=== PATIENT | male | born 1945 | race Caucasian/White ===

== ENCOUNTER 2020-10-24 11:48 | Emergency (ER) | payer MEDICARE ==
[2020-10-24 13:37] LABS: #Basophils 0.1 thou/uL (0.0-0.2); #Eosinphils 0.1 thou/uL (0.0-0.7); #Lymphocytes 2.9 thou/uL (1.20-3.40); #Monocytes 1.6 thou/uL (0.11-0.59); #Neutrophils 6.8 thou/uL (1.40-6.50); %Basophils 0.5 % (0.0-1.0); %Eosinophils 0.8 % (0.0-10.0); %Lymphocytes 25.7 % (21.0-51.0); Mean Corpuscular HGB CONC 32.2 g/dL (32.0-36.0); Mean Corpuscular Hemoglobin 30.1 pg (27.0-31.0); Mean Corpuscular Volume 93.4 fL (78.0-98.0); Mean Platelet Volume 9.8 fL (7.4-10.4); Platelet Count 303 thou/uL (130-400); RBC Distribution Width 13.6 % (11.5-14.5); Red Blood Cell (RBC) Count 4.31 mill/uL (4.70-6.10); White Blood Cell (WBC) Count 11.5 thou/uL (4.8-10.8)
[2020-10-24 13:54] LABS: ALT (SGPT) 18 U/L (8-55); AST (SGOT) 21 U/L (5-34); Alkaline Phosphatase 106 U/L (40-110); Anion Gap 15 mmol/L (10-20); BUN (Urea Nitrogen) 23 mg/dL (8.4-25.7); Bilirubin, Total 0.4 mg/dL (0.2-1.2); Calc. Creatinine Clearance 0 mL/min (70-130); Calcium 9.2 mg/dL (7.8-10.44); Carbon Dioxide 24 mmol/L (23-31); Chloride 106 mmol/L (98-107); Globulin 3.4 g/dL (2.4-3.5); Glucose 158 mg/dL (83-110); Potassium 4.4 mmol/L (3.5-5.1); Protein, Total 7.4 g/dL (5.8-8.1); Sodium 141 mmol/L (136-145)
[2020-10-24 14:23] LABS: Bilirubin Negative (Negative); Blood, Urine Negative (Negative); Clarity Clear (Clear); Glucose, Urine (Dipstick) 30 mg/dL (Negative); Ketone, Urine Negative (Negative); Leukocyte Negative Leu/uL (Negative); Nitrite Negative (Negative); Protein, Urine (Dipstick) Negative (Neg-Trace); Specific Gravity, Urine 1.017 (1.002-1.036); Urobilinogen Normal mg/dL (Less than 2)
[2020-10-24] MEDS ORDERED: Iopamidol-370 76% 500 ML 1 ML ONE (14:27)
== END 2020-10-24 20:34 | disposition home or self-care (01) ==
LOC: ERS 11:48
DX: R06.00 Dyspnea, unspecified (principal); R53.83 Other fatigue; I25.10 Atherosclerotic heart disease of native coronary artery without angina pectoris; E11.9 Type 2 diabetes mellitus without complications; E78.5 Hyperlipidemia, unspecified; E78.00 Pure hypercholesterolemia, unspecified; I10 Essential (primary) hypertension; Z79.82 Long term (current) use of aspirin; Z79.899 Other long term (current) drug therapy; Z79.84 Long term (current) use of oral hypoglycemic drugs
CPT/HCPCS: 36415; 70450; 71045; 71275; 80053; 81003; 84484; 85025; 85379; 93005; 94760; Q9967

== ENCOUNTER 2021-01-17 09:51 | Outpatient (CLI) | payer MEDICARE ==
[2021-01-17 12:02] LABS: Hemoglobin 13.2 g/dL (13.5-17.5); Mean Corpuscular HGB CONC 32.2 g/dL (32.0-36.0); Mean Corpuscular Volume 90.1 fl (81.2-95.1); Mean Platelet Volume 12.6 fl (7.4-10.4); Platelet Count 378 10x3/uL (150-450); RBC Distribution Width 15.1 % (11.5-14.5); Red Blood Cell (RBC) Count 4.55 10x6/uL (4.32-5.72); White Blood Cell (WBC) Count 13.3 10x3/uL (3.5-10.5)
[2021-01-17 12:10] LABS: PTT 26.7 sec (22.0-33.0)
[2021-01-17 12:12] LABS: Anion Gap 17 mmol/L (10-20); BUN (Urea Nitrogen) 24 mg/dL (8.4-25.7); Calc. Creatinine Clearance 0 mL/min (70-130); Calcium 9.9 mg/dL (7.8-10.44); Carbon Dioxide 24 mmol/L (23-31); Chloride 106 mmol/L (98-107); Glucose 176 mg/dL (83-110); Sodium 142 mmol/L (136-145)
[2021-01-17 12:42] LABS: Bilirubin Neg (Negative); Blood, Urine Negative (Negative); Clarity Clear (Clear); Glucose, Urine (Dipstick) Normal (Negative); Ketone, Urine Negative (Negative); Leukocyte Negative (Negative); Nitrite Negative (Negative); Protein, Urine (Dipstick) Negative (Neg-Trace); Urobilinogen Normal mg/dL (Less than 2)
[2021-01-17 13:18] LABS: Mucous/LPF 1+ LPF (<2+); RBC/HPF 0-3 HPF (0-3); Squamous Epithelial 0-3 HPF (0-3); WBC/HPF 0-3 HPF (0-3)
== END 2021-01-17 09:52 | disposition home or self-care (01) ==
LOC: LABBT 09:51
PROVIDERS: ATTEND Urology
DX: Z01.818 Encounter for other preprocedural examination (principal); Z12.5 Encounter for screening for malignant neoplasm of prostate; I11.0 Hypertensive heart disease with heart failure; N43.40 Spermatocele of epididymis, unspecified; E11.9 Type 2 diabetes mellitus without complications; I73.9 Peripheral vascular disease, unspecified; I50.9 Heart failure, unspecified; N40.1 Benign prostatic hyperplasia with lower urinary tract symptoms; N43.2 Other hydrocele; N28.9 Disorder of kidney and ureter, unspecified; J98.6 Disorders of diaphragm; R35.1 Nocturia
CPT/HCPCS: 80048; 81001; 85027; 85610; 85730; 87086; 93005; 93010

== ENCOUNTER 2021-01-22 06:21 | Day surgery (SDC) | payer MEDICARE ==
[2021-01-21 12:23] VITALS: BMI 29.7
[2021-01-22] MEDS ORDERED: Bacitracin Zinc Ointment 30 gm TUBE ONE (07:01)
[2021-01-22] MEDS ORDERED: Gentamicin 80 MG/2 ML VIAL ONE (07:01)
[2021-01-22] MEDS ORDERED: CEFAZOLIN 1 GM VIAL ONE (07:19)
[2021-01-22] MEDS ORDERED: Sodium Chloride 0.9% 100 ML ONE (07:19)
[2021-01-22] MEDS ORDERED: Levofloxacin 500 mg/D5W 100 ml Premix Bag ONE (07:19)
[2021-01-22] MEDS ORDERED: PHENYLEPHRINE-NS 100 MCG/ML 10 ML SYRINGE ONE ×2 (08:23→08:27)
[2021-01-22] MEDS ORDERED: Fentanyl 100 MCG/2 ML VIAL ONE (08:23)
[2021-01-22] MEDS ORDERED: ePHEDrine Sulfate 50 MG/10 ML VIAL ONE (08:27)
[2021-01-22] MEDS ORDERED: Glycopyrrolate 0.2 MG/ML 5 ML SYRINGE ONE (08:27)
[2021-01-22] MEDS ORDERED: Ondansetron PF 4 MG/2 ML Vial ONE (08:27)
[2021-01-22] MEDS ORDERED: PROPOFOL 200 MG/20 ML VIAL ONE (08:27)
[2021-01-22] MEDS ORDERED: EPINEPHrine 1 MG/10 ML Abboject SYRINGE ONE (08:27)
[2021-01-22] MEDS ORDERED: Neomycin-Polymyxin 1 ML AMP ONE (09:16)
[2021-01-22] MEDS ORDERED: Bupivacaine 0.25% HCL 30 ML VIAL ONE (10:17)
[2021-01-22] MEDS ORDERED: Phenazopyridine HCl 100 MG TAB ONE (10:55)
== END 2021-01-22 15:53 | disposition home or self-care (01) ==
LOC: SDC 06:21
PROVIDERS: ATTEND Urology
PROC: 0T7D8DZ Dilation of Urethra with Intraluminal Device, Via Natural or Artificial Opening Endoscopic (ICD-10-PCS; principal; 2021-01-22)
PROC: 0VB60ZZ Excision of Right Tunica Vaginalis, Open Approach (ICD-10-PCS; 2021-01-22)
PROC: 0VBJ0ZZ Excision of Right Epididymis, Open Approach (ICD-10-PCS; 2021-01-22)
DX: N40.1 Benign prostatic hyperplasia with lower urinary tract symptoms (principal); N13.8 Other obstructive and reflux uropathy; N43.3 Hydrocele, unspecified; N43.41 Spermatocele of epididymis, single; R39.11 Hesitancy of micturition; R39.12 Poor urinary stream; R35.1 Nocturia; E11.51 Type 2 diabetes mellitus with diabetic peripheral angiopathy without gangrene; I11.0 Hypertensive heart disease with heart failure; I50.9 Heart failure, unspecified; E11.43 Type 2 diabetes mellitus with diabetic autonomic (poly)neuropathy; K31.84 Gastroparesis; E78.00 Pure hypercholesterolemia, unspecified; I25.10 Atherosclerotic heart disease of native coronary artery without angina pectoris; Z79.02 Long term (current) use of antithrombotics/antiplatelets; Z79.82 Long term (current) use of aspirin; Z79.84 Long term (current) use of oral hypoglycemic drugs; Z79.899 Other long term (current) drug therapy; Z95.1 Presence of aortocoronary bypass graft
CPT/HCPCS: 88304; J0171; J0690; J1580; J1956; J2405; J2704; J3010; J3370; J3490; L8699; S0020

== ENCOUNTER 2021-07-16 09:52 | Inpatient (IN) | payer MEDICARE ==
[2021-07-16 10:53] LABS: #Eosinphils 0.3 thou/uL (0.0-0.7); #Lymphocytes 2.7 thou/uL (1.20-3.40); #Monocytes 1.6 thou/uL (0.11-0.59); #Neutrophils 7.1 thou/uL (1.40-6.50); %Basophils 0.1 % (0.0-1.0); %Eosinophils 2.9 % (0.0-10.0); %Monocytes 13.7 % (0.0-10.0); %Neutrophils 60.3 % (42.0-75.0); Hemoglobin 13.5 g/dL (14.0-18.0); Mean Corpuscular HGB CONC 32.1 g/dL (32.0-36.0); Mean Corpuscular Hemoglobin 29.3 pg (27.0-31.0); Mean Corpuscular Volume 91.2 fL (78.0-98.0); Mean Platelet Volume 8.6 fL (7.4-10.4); Platelet Count 391 thou/uL (130-400); RBC Distribution Width 12.6 % (11.5-14.5); White Blood Cell (WBC) Count 11.8 thou/uL (4.8-10.8)
[2021-07-16 11:14] LABS: ALT (SGPT) 15 U/L (8-55); AST (SGOT) 18 U/L (5-34); Albumin 3.8 g/dL (3.4-4.8); Alkaline Phosphatase 124 U/L (40-110); Anion Gap 15 mmol/L (10-20); BUN (Urea Nitrogen) 19 mg/dL (8.4-25.7); Bilirubin, Total 0.2 mg/dL (0.2-1.2); Calc. Creatinine Clearance 0 mL/min (70-130); Calcium 9.1 mg/dL (7.8-10.44); Carbon Dioxide 23 mmol/L (23-31); Chloride 107 mmol/L (98-107); Globulin 3.5 g/dL (2.4-3.5); Glucose 82 mg/dL (83-110); Potassium 3.8 mmol/L (3.5-5.1); Protein, Total 7.3 g/dL (5.8-8.1); Sodium 141 mmol/L (136-145)
[2021-07-16 11:31] LABS: CKMB 1.5 ng/mL (0-6.6)
[2021-07-16 11:52] LABS: SARS-CoV-2 NAA Rapid Test Not Detected (NotDetected)
[2021-07-16 12:00] LABS: Bilirubin Negative (Negative); Blood, Urine Negative (Negative); Clarity Clear (Clear); Glucose, Urine (Dipstick) Normal (Negative); Ketone, Urine Negative (Negative); Leukocyte Negative Leu/uL (Negative); Nitrite Negative (Negative); Protein, Urine (Dipstick) 10 mg/dL (Neg-Trace); Specific Gravity, Urine 1.021 (1.002-1.036); Urobilinogen Normal mg/dL (Less than 2); pH, Urine 5.5 (5.0-9.0)
[2021-07-16] MEDS ORDERED: Aspirin Chewable 81 MG TAB ONE (12:23)
[2021-07-16 14:57] LABS: Troponin I Less than 0.010 ng/mL (< 0.028)
[2021-07-16] MEDS ORDERED: Acetaminophen 325 MG TAB PO PRN (17:01)
[2021-07-16] MEDS ORDERED: Senokot S 8.6-50 MG TAB PO PRN (17:01)
[2021-07-16] MEDS ORDERED: Ondansetron ODT 4 MG TAB PO PRN (17:01)
[2021-07-16] MEDS ORDERED: HumaLOG 300 UNITS/3 ML VIAL SC PRN ×2 (17:19)
[2021-07-16] MEDS ORDERED: Dextrose 5% in Water 1,000 ML IV PRN (17:19)
[2021-07-16] MEDS ORDERED: Dextrose 50% Abboject 50 ML SYRINGE SLOW IVP PRN (17:19)
[2021-07-16 17:58] LABS: Troponin I 0.013 ng/mL (< 0.028)
[2021-07-16 18:15] VITALS: BMI 26.6
[2021-07-16] MEDS: Sodium Chloride 0.9% 1,000 ML IV SCH (18:30)
[2021-07-16] MEDS: guaiFENesin/DM ER PO SCH (20:23)
[2021-07-16] MEDS: Famotidine 20 MG TAB PO SCH (20:23)
[2021-07-17] MEDS: Sodium Chloride 0.9% 1,000 ML IV SCH (04:50)
[2021-07-17 05:13] LABS: #Eosinphils 0.4 thou/uL (0.0-0.7); #Lymphocytes 3.2 thou/uL (1.20-3.40); #Monocytes 1.7 thou/uL (0.11-0.59); #Neutrophils 9.4 thou/uL (1.40-6.50); %Basophils 0.3 % (0.0-1.0); %Eosinophils 2.9 % (0.0-10.0); %Lymphocytes 21.5 % (21.0-51.0); %Monocytes 11.4 % (0.0-10.0); %Neutrophils 63.9 % (42.0-75.0); Hemoglobin 12.5 g/dL (14.0-18.0); Mean Corpuscular HGB CONC 32.7 g/dL (32.0-36.0); Mean Corpuscular Hemoglobin 29.9 pg (27.0-31.0); Mean Corpuscular Volume 91.2 fL (78.0-98.0); Mean Platelet Volume 8.7 fL (7.4-10.4); Platelet Count 377 thou/uL (130-400); RBC Distribution Width 12.4 % (11.5-14.5); Red Blood Cell (RBC) Count 4.19 mill/uL (4.70-6.10); White Blood Cell (WBC) Count 14.7 thou/uL (4.8-10.8)
[2021-07-17 05:38] LABS: ALT (SGPT) 14 U/L (8-55); AST (SGOT) 16 U/L (5-34); Albumin 3.4 g/dL (3.4-4.8); Alkaline Phosphatase 119 U/L (40-110); Anion Gap 11 mmol/L (10-20); BUN (Urea Nitrogen) 14 mg/dL (8.4-25.7); Bilirubin, Total 0.2 mg/dL (0.2-1.2); Calc. Creatinine Clearance 67 mL/min (70-130); Calcium 8.6 mg/dL (7.8-10.44); Carbon Dioxide 25 mmol/L (23-31); Chloride 108 mmol/L (98-107); Globulin 3.2 g/dL (2.4-3.5); Glucose 122 mg/dL (83-110); Potassium 3.5 mmol/L (3.5-5.1); Protein, Total 6.6 g/dL (5.8-8.1); Sodium 140 mmol/L (136-145)
[2021-07-17] MEDS ORDERED: FLU VACC QS2021-22(65YR UP)/PF 240 MCG/0.7 ML SYRINGE IM ONE (09:00)
[2021-07-17] MEDS: Famotidine 20 MG TAB PO SCH ×2 (09:13→20:32)
[2021-07-17] MEDS: Aspirin 81 mg Enteric Coated Tablet PO SCH (09:13)
[2021-07-17] MEDS: guaiFENesin/DM ER PO SCH ×2 (09:13→20:32)
[2021-07-17] MEDS ORDERED: Carvedilol 25 MG TAB PO SCH (10:30)
[2021-07-17] MEDS ORDERED: Bupropion 150 MG XL TAB PO SCH (10:30)
[2021-07-17] MEDS ORDERED: Amlodipine 10 MG TAB PO SCH (10:30)
[2021-07-17] MEDS ORDERED: Tamsulosin HCl 0.4 MG CAP PO SCH (10:45)
[2021-07-17] MEDS ORDERED: Ramipril 5 MG CAP PO SCH (15:00)
[2021-07-18 04:37] LABS: #Basophils 0.1 thou/uL (0.0-0.2); #Eosinphils 0.3 thou/uL (0.0-0.7); #Lymphocytes 3.2 thou/uL (1.20-3.40); #Monocytes 1.5 thou/uL (0.11-0.59); #Neutrophils 8.1 thou/uL (1.40-6.50); %Basophils 0.4 % (0.0-1.0); %Eosinophils 2.6 % (0.0-10.0); %Lymphocytes 24.1 % (21.0-51.0); %Monocytes 11.5 % (0.0-10.0); %Neutrophils 61.4 % (42.0-75.0); Hemoglobin 13.1 g/dL (14.0-18.0); Mean Corpuscular HGB CONC 31.4 g/dL (32.0-36.0); Mean Corpuscular Hemoglobin 28.4 pg (27.0-31.0); Mean Corpuscular Volume 90.6 fL (78.0-98.0); Mean Platelet Volume 8.8 fL (7.4-10.4); Platelet Count 423 thou/uL (130-400); RBC Distribution Width 12.4 % (11.5-14.5); Red Blood Cell (RBC) Count 4.62 mill/uL (4.70-6.10); White Blood Cell (WBC) Count 13.1 thou/uL (4.8-10.8)
[2021-07-18 05:59] LABS: Anion Gap 12 mmol/L (10-20); BUN (Urea Nitrogen) 15 mg/dL (8.4-25.7); Calc. Creatinine Clearance 63 mL/min (70-130); Calcium 9.3 mg/dL (7.8-10.44); Carbon Dioxide 25 mmol/L (23-31); Chloride 107 mmol/L (98-107); Glucose 121 mg/dL (83-110); Potassium 3.6 mmol/L (3.5-5.1); Sodium 140 mmol/L (136-145)
[2021-07-18] MEDS ORDERED: Carvedilol 25 MG TAB PO SCH (08:00)
[2021-07-18 08:16] VITALS: BP 152/82; TEMP 98.1
[2021-07-18] MEDS ORDERED: Ramipril 5 MG CAP PO SCH (09:00)
[2021-07-18] MEDS ORDERED: Bupropion 150 MG XL TAB PO SCH (09:00)
[2021-07-18] MEDS ORDERED: Cholecalciferol 1,000 UNITS (25 MCG) TAB PO SCH (09:00)
[2021-07-18] MEDS ORDERED: Amlodipine 10 MG TAB PO SCH (09:00)
[2021-07-18] MEDS ORDERED: Alogliptin 25 MG TAB PO SCH (09:00)
[2021-07-18] MEDS ORDERED: Tamsulosin HCl 0.4 MG CAP PO SCH (09:00)
[2021-07-18] MEDS ORDERED: Magnesium Oxide 400 MG TAB PO SCH (09:00)
[2021-07-18] MEDS ORDERED: Multivitamin W/ Minerals 1 TAB PO SCH (09:00)
[2021-07-18] MEDS ORDERED: Clopidogrel Bisulfate 75 MG TAB PO SCH (09:00)
[2021-07-18] MEDS: Aspirin 81 mg Enteric Coated Tablet PO SCH (09:15)
[2021-07-18] MEDS: guaiFENesin/DM ER PO SCH (09:16)
[2021-07-18] MEDS: Famotidine 20 MG TAB PO SCH (09:16)
== END 2021-07-18 10:55 | disposition home or self-care (01) | DRG 312 ==
LOC: ERS 09:52 → ERHOLD 12:38 → 2NO 17:32 → OBSVTOIN 07-17 09:50
PROVIDERS: ADMIT Family Medicine; ATTEND Family Medicine
DX: I95.1 Orthostatic hypotension (principal); N17.9 Acute kidney failure, unspecified; Z20.822 Contact with and (suspected) exposure to COVID-19; I25.10 Atherosclerotic heart disease of native coronary artery without angina pectoris; E11.22 Type 2 diabetes mellitus with diabetic chronic kidney disease; M19.90 Unspecified osteoarthritis, unspecified site; E78.5 Hyperlipidemia, unspecified; I12.9 Hypertensive chronic kidney disease with stage 1 through stage 4 chronic kidney disease, or unspecified chronic kidney disease; N18.9 Chronic kidney disease, unspecified; J20.9 Acute bronchitis, unspecified; I95.9 Hypotension, unspecified; E86.0 Dehydration; Z90.49 Acquired absence of other specified parts of digestive tract; D72.829 Elevated white blood cell count, unspecified; Z90.89 Acquired absence of other organs; Z89.022 Acquired absence of left finger(s); Z90.81 Acquired absence of spleen; Z95.1 Presence of aortocoronary bypass graft; Z79.02 Long term (current) use of antithrombotics/antiplatelets; Z79.899 Other long term (current) drug therapy; Z79.82 Long term (current) use of aspirin; J06.9 Acute upper respiratory infection, unspecified
CPT/HCPCS: 0240U; 36415; 36416; 71045; 80048; 80053; 81003; 82553; 83880; 84484; 85025; 93005; 93306; 94640; G0378; J7050; J7620; U0003; U0005

== ENCOUNTER 2021-07-31 11:30 | Emergency (ER) | payer MEDICARE ==
[2021-07-31 12:51] LABS: #Eosinphils 0.1 thou/uL (0.0-0.7); #Lymphocytes 0.9 thou/uL (1.20-3.40); #Monocytes 0.9 thou/uL (0.11-0.59); #Neutrophils 7.8 thou/uL (1.40-6.50); %Basophils 0.1 % (0.0-1.0); %Eosinophils 0.7 % (0.0-10.0); %Lymphocytes 9.6 % (21.0-51.0); %Monocytes 9.7 % (0.0-10.0); Mean Corpuscular HGB CONC 33.2 g/dL (32.0-36.0); Mean Corpuscular Hemoglobin 29.7 pg (27.0-31.0); Mean Corpuscular Volume 89.5 fL (78.0-98.0); Mean Platelet Volume 8.9 fL (7.4-10.4); Platelet Count 366 thou/uL (130-400); RBC Distribution Width 12.9 % (11.5-14.5); White Blood Cell (WBC) Count 9.7 thou/uL (4.8-10.8)
[2021-07-31 13:10] LABS: ALT (SGPT) 11 U/L (8-55); AST (SGOT) 15 U/L (5-34); Albumin 3.6 g/dL (3.4-4.8); Alkaline Phosphatase 121 U/L (40-110); Anion Gap 11 mmol/L (10-20); BUN (Urea Nitrogen) 20 mg/dL (8.4-25.7); Bilirubin, Total 0.4 mg/dL (0.2-1.2); CK (CPK) 33 U/L (30-200); Calc. Creatinine Clearance 0 mL/min (70-130); Calcium 9.1 mg/dL (7.8-10.44); Carbon Dioxide 28 mmol/L (23-31); Chloride 103 mmol/L (98-107); Globulin 3.6 g/dL (2.4-3.5); Glucose 158 mg/dL (83-110); Magnesium 1.8 mg/dL (1.6-2.6); Potassium 3.3 mmol/L (3.5-5.1); Protein, Total 7.2 g/dL (5.8-8.1); Sodium 139 mmol/L (136-145)
[2021-07-31 13:12] LABS: Bilirubin Negative (Negative); Blood, Urine Negative (Negative); Clarity Clear (Clear); Glucose, Urine (Dipstick) 70 mg/dL (Negative); Ketone, Urine 10 mg/dL (Negative); Leukocyte Negative Leu/uL (Negative); Nitrite Negative (Negative); Protein, Urine (Dipstick) 10 mg/dL (Neg-Trace); Specific Gravity, Urine 1.021 (1.002-1.036); Urobilinogen Normal mg/dL (Less than 2); pH, Urine 5.5 (5.0-9.0)
== END 2021-07-31 15:12 | disposition home or self-care (01) ==
LOC: ERS 11:30
DX: E87.6 Hypokalemia (principal); I25.10 Atherosclerotic heart disease of native coronary artery without angina pectoris; E11.9 Type 2 diabetes mellitus without complications; I10 Essential (primary) hypertension; E78.5 Hyperlipidemia, unspecified; E78.00 Pure hypercholesterolemia, unspecified; Z79.84 Long term (current) use of oral hypoglycemic drugs; Z79.82 Long term (current) use of aspirin; Z79.899 Other long term (current) drug therapy
CPT/HCPCS: 71045; 80053; 81003; 82550; 83735; 84443; 84484; 85025; 93005

== ENCOUNTER 2022-11-16 06:39 | Day surgery (SDC) | payer MEDICARE ==
[2022-11-12 13:07] VITALS: BMI 24.3
[2022-11-16] MEDS ORDERED: PROPOFOL 200 MG/20 ML VIAL ONE (08:43)
[2022-11-16] MEDS ORDERED: Lidocaine 1% PF 5 ML VIAL ONE (08:43)
== END 2022-11-16 10:17 | disposition home or self-care (01) ==
LOC: SDC 06:39
PROVIDERS: ATTEND Internal Medicine Gastroenterology
PROC: 0DJ08ZZ Inspection of Upper Intestinal Tract, Via Natural or Artificial Opening Endoscopic (ICD-10-PCS; principal; 2022-11-16)
PROC: 0D757ZZ Dilation of Esophagus, Via Natural or Artificial Opening (ICD-10-PCS; 2022-11-16)
DX: R13.12 Dysphagia, oropharyngeal phase (principal); R13.19 Other dysphagia; I25.10 Atherosclerotic heart disease of native coronary artery without angina pectoris; E11.9 Type 2 diabetes mellitus without complications; I10 Essential (primary) hypertension; R19.7 Diarrhea, unspecified; Z79.82 Long term (current) use of aspirin; Z79.84 Long term (current) use of oral hypoglycemic drugs; Z79.899 Other long term (current) drug therapy; Z95.1 Presence of aortocoronary bypass graft
CPT/HCPCS: J2704

== ENCOUNTER 2023-06-18 05:37 | Observation (INO) | payer MEDICARE ==
[2023-06-18 06:35] LABS: Prothrombin Time 13.6 sec (12.0-14.7)
[2023-06-18 06:36] LABS: PTT 73.3 sec (22.9-36.1)
[2023-06-18 06:57] LABS: Troponin I 0.062 ng/mL (< 0.028)
[2023-06-18] MEDS ORDERED: Acetaminophen 325 MG TAB PO PRN (08:03)
[2023-06-18] MEDS ORDERED: hydrALAZINE 20 MG/ML VIAL SLOW IVP PRN (08:05)
[2023-06-18] MEDS ORDERED: Glucagon 1 MG/ML KIT IM PRN (08:43)
[2023-06-18] MEDS ORDERED: HumaLOG 300 UNITS/3 ML VIAL SC PRN (08:43)
[2023-06-18] MEDS ORDERED: Dextrose 50% Abboject 50 ML SYRINGE SLOW IVP PRN (08:43)
[2023-06-18] MEDS ORDERED: Dextrose 5% in Water 1,000 ML IV PRN (08:43)
[2023-06-18] MEDS ORDERED: BUPROPION HCL 150 MG PO SCH (09:00)
[2023-06-18 09:01] LABS: Phosphorus 3.8 mg/dL (2.3-4.7)
[2023-06-18 09:30] VITALS: BMI 25.2
[2023-06-18 09:53] LABS: Troponin I 0.064 ng/mL (< 0.028)
[2023-06-18] MEDS: BuPROPion XL 150 MG ER.TAB PO SCH (10:03)
[2023-06-18] MEDS: Tamsulosin HCl 0.4 MG CAP PO SCH (10:03)
[2023-06-18] MEDS: Sacubitril 49 MG/Valsartan 51 MG TABLET PO SCH ×2 (10:03→20:42)
[2023-06-18] MEDS ORDERED: Carvedilol 25 MG TAB ONE (10:04)
[2023-06-18] MEDS: Carvedilol 25 MG TAB PO SCH ×2 (10:05→20:42)
[2023-06-18] MEDS ORDERED: Venlafaxine HCl XR 75 MG CAP PO SCH (10:15)
[2023-06-18 10:35] LABS: Prothrombin Time 13.3 sec (12.0-14.7)
[2023-06-18 10:36] LABS: PTT 44.4 sec (22.9-36.1)
[2023-06-18 13:19] LABS: Troponin I 0.069 ng/mL (< 0.028)
[2023-06-18] MEDS ORDERED: FLU VACC QS2023(65UP)/MF59C/PF 60 MCG/0.5 ML SYRINGE IM ONE (15:00)
[2023-06-18] MEDS: HumaLOG 300 UNITS/3 ML VIAL SC PRN (17:04)
[2023-06-18] MEDS ORDERED: Atorvastatin Calcium 10 MG TAB PO SCH (21:00)
[2023-06-18] MEDS ORDERED: Atorvastatin Calcium 20 MG TAB PO SCH (21:00)
[2023-06-19 04:52] LABS: #Basophils 0.1 thou/uL (0.0-0.2); #Eosinphils 0.3 thou/uL (0.0-0.7); #Monocytes 1.6 thou/uL (0.11-0.59); #Neutrophils 7.7 thou/uL (1.40-6.50); %Basophils 0.4 % (0.0-1.0); %Eosinophils 2.7 % (0.0-10.0); %Lymphocytes 20.7 % (21.0-51.0); %Monocytes 13.3 % (0.0-10.0); %Neutrophils 62.5 % (42.0-75.0); Hematocrit 31.2 % (42.0-52.0); Hemoglobin 10.2 g/dL (14.0-18.0); Mean Corpuscular HGB CONC 32.7 g/dL (32.0-36.0); Mean Corpuscular Hemoglobin 29.7 pg (27.0-31.0); Mean Corpuscular Volume 90.7 fl (78.0-98.0); Mean Platelet Volume 12.4 fL (7.4-10.4); Platelet Count 359 10x3/uL (130-400); RBC Distribution Width 13.7 % (11.5-14.5); Red Blood Cell (RBC) Count 3.44 mill/uL (4.70-6.10); White Blood Cell (WBC) Count 12.3 10x3/uL (4.8-10.8)
[2023-06-19 05:34] LABS: ALT (SGPT) 26 U/L (8-55); AST (SGOT) 18 U/L (5-34); Albumin 3.8 g/dL (3.4-4.8); Alkaline Phosphatase 101 U/L (40-110); Anion Gap 14 mmol/L (10-20); BUN (Urea Nitrogen) 23 mg/dL (8.4-25.7); Bilirubin, Total 0.6 mg/dL (0.2-1.2); Calc. Creatinine Clearance 42 mL/min (70-130); Calcium 8.9 mg/dL (7.8-10.44); Carbon Dioxide 26 mmol/L (23-31); Chloride 104 mmol/L (98-107); Estimated GFR 46; Globulin 2.7 g/dL (2.4-3.5); Glucose 149 mg/dL (83-110); Potassium 3.4 mmol/L (3.5-5.1); Protein, Total 6.5 g/dL (5.8-8.1); Sodium 141 mmol/L (136-145)
[2023-06-19] MEDS ORDERED: Potassium Chloride 20 MEQ TAB PO SCH (07:15)
[2023-06-19 07:52] VITALS: TEMP 97.7
[2023-06-19] MEDS: Carvedilol 25 MG TAB PO SCH (08:30)
[2023-06-19] MEDS: Sacubitril 49 MG/Valsartan 51 MG TABLET PO SCH (08:30)
[2023-06-19] MEDS: Tamsulosin HCl 0.4 MG CAP PO SCH (08:30)
[2023-06-19] MEDS: BuPROPion XL 150 MG ER.TAB PO SCH (08:30)
[2023-06-19] MEDS ORDERED: Venlafaxine HCl XR 75 MG CAP PO SCH (09:00)
[2023-06-19] MEDS ORDERED: Mirabegron ER 25 MG ER.TAB PO SCH (09:00)
[2023-06-19] MEDS: HumaLOG 300 UNITS/3 ML VIAL SC PRN (11:16)
[2023-06-19 11:21] VITALS: BP 115/61
== END 2023-06-19 11:30 | disposition home or self-care (01) ==
LOC: ERS 05:37 → ERHOLD 07:08 → 2NO 10:44
PROVIDERS: ADMIT Family Medicine; ATTEND Family Medicine
DX: R06.02 Shortness of breath (principal); I45.81 Long QT syndrome; E87.6 Hypokalemia; N32.81 Overactive bladder; I13.0 Hypertensive heart and chronic kidney disease with heart failure and stage 1 through stage 4 chronic kidney disease, or unspecified chronic kidney disease; N18.30 Chronic kidney disease, stage 3 unspecified; I50.20 Unspecified systolic (congestive) heart failure; E11.42 Type 2 diabetes mellitus with diabetic polyneuropathy; E78.5 Hyperlipidemia, unspecified; E11.22 Type 2 diabetes mellitus with diabetic chronic kidney disease; R77.8 Other specified abnormalities of plasma proteins; I25.10 Atherosclerotic heart disease of native coronary artery without angina pectoris; Z95.0 Presence of cardiac pacemaker; Z79.82 Long term (current) use of aspirin; Z79.84 Long term (current) use of oral hypoglycemic drugs; Z79.899 Other long term (current) drug therapy
CPT/HCPCS: 36415; 36416; 80053; 84100; 85025; 93005; 96365; 96366; G0378; J1815

== ENCOUNTER 2023-07-26 10:13 | Inpatient (IN) | payer MEDICARE ==
[2023-07-26 11:25] LABS: Hematocrit 36.8 % (42.0-52.0); Hemoglobin 11.6 g/dL (14.0-18.0); Manual Diff?? YES; Mean Corpuscular HGB CONC 31.5 g/dL (32.0-36.0); Mean Corpuscular Hemoglobin 28.4 pg (27.0-31.0); Mean Corpuscular Volume 90.2 fl (78.0-98.0); Mean Platelet Volume 11.9 fL (7.4-10.4); Platelet Count 467 10x3/uL (130-400); RBC Distribution Width 14.8 % (11.5-14.5); Red Blood Cell (RBC) Count 4.08 mill/uL (4.70-6.10); White Blood Cell (WBC) Count 11.9 10x3/uL (4.8-10.8)
[2023-07-26 11:38] LABS: Delete Auto Diff?? YES
[2023-07-26 11:45] LABS: ALT (SGPT) 90 U/L (8-55); AST (SGOT) 59 U/L (5-34); Albumin 3.9 g/dL (3.4-4.8); Alkaline Phosphatase 129 U/L (40-110); Anion Gap 14 mmol/L (10-20); BUN (Urea Nitrogen) 17 mg/dL (8.4-25.7); Bilirubin, Total 1.4 mg/dL (0.2-1.2); Calc. Creatinine Clearance 0 mL/min (70-130); Calcium 9.2 mg/dL (7.8-10.44); Carbon Dioxide 26 mmol/L (23-31); Chloride 105 mmol/L (98-107); Estimated GFR 50; Globulin 3.2 g/dL (2.4-3.5); Glucose 167 mg/dL (83-110); Potassium 3.5 mmol/L (3.5-5.1); Protein, Total 7.1 g/dL (5.8-8.1); Sodium 141 mmol/L (136-145); Troponin I 0.066 ng/mL (< 0.028)
[2023-07-26 12:03] LABS: Lipase 18 U/L (8-78)
[2023-07-26 12:21] LABS: Eosinophils 2 % (0-10); Lymphocytes 16 % (21-51); Monocytes 9 % (0-10); Neutrophil 72 % (42-75); Polychromasia SLIGHT = 2-3 cells (100X) (0-2/hpf)
[2023-07-26 12:22] LABS: Burr Cells SLIGHT = 2-5 cells (100X) (0-1/hpf); Differential Comment MP; Platelet Adequacy Comment Appears Increased; Schistocytes SLIGHT = 2-5 cells (100X) (0-1/hpf); Smudge Cells SLIGHT
[2023-07-26] MEDS ORDERED: Iopamidol-370 76% 500 ML MDV (1 ML CHARGE) ONE (12:22)
[2023-07-26] MEDS ORDERED: Aspirin Chewable 81 MG TAB ONE (14:55)
[2023-07-26] MEDS ORDERED: Furosemide 40 MG (4 mL) VIAL ONE (14:55)
[2023-07-26] MEDS ORDERED: Acetaminophen 650 MG Suppository PR PRN (15:43)
[2023-07-26] MEDS ORDERED: Acetaminophen 325 MG TAB PO PRN (15:43)
[2023-07-26] MEDS ORDERED: Glucagon 1 MG/ML KIT IM PRN (15:43)
[2023-07-26] MEDS ORDERED: HumaLOG 300 UNITS/3 ML VIAL SC PRN ×2 (15:43)
[2023-07-26] MEDS ORDERED: Dextrose 5% in Water 1,000 ML IV PRN (15:43)
[2023-07-26] MEDS ORDERED: Calcium Carbonate 500 MG ChewTAB PO PRN (15:43)
[2023-07-26] MEDS ORDERED: Dextrose 50% Abboject 50 ML SYRINGE SLOW IVP PRN (15:43)
[2023-07-26] MEDS ORDERED: Nitroglycerin 0.4 MG TAB (25 Tab Bottle) SL PRN (16:03)
[2023-07-26] MEDS: metFORMIN 500 MG TAB PO SCH (17:51)
[2023-07-26 18:01] LABS: Troponin I 0.064 ng/mL (< 0.028)
[2023-07-26] MEDS: Sacubitril 49 MG/Valsartan 51 MG TABLET PO SCH (21:11)
[2023-07-26] MEDS: Atorvastatin Calcium 20 MG TAB PO SCH (21:11)
[2023-07-26] MEDS: Carvedilol 6.25 MG TAB PO SCH (21:12)
[2023-07-26] MEDS ORDERED: Furosemide 20 MG (2 mL) VIAL SLOW IVP SCH (21:35)
[2023-07-27 04:15] LABS: SARS-CoV-2 NAA Rapid Test Not Detected (NotDetected)
[2023-07-27 06:11] LABS: #Basophils 0.1 thou/uL (0.0-0.2); #Eosinphils 0.1 thou/uL (0.0-0.7); #Monocytes 1.2 thou/uL (0.11-0.59); #Neutrophils 7.8 thou/uL (1.40-6.50); %Basophils 0.7 % (0.0-1.0); %Lymphocytes 16.8 % (21.0-51.0); %Monocytes 10.8 % (0.0-10.0); %Neutrophils 69.5 % (42.0-75.0); Hematocrit 36.5 % (42.0-52.0); Hemoglobin 11.6 g/dL (14.0-18.0); Mean Corpuscular HGB CONC 31.8 g/dL (32.0-36.0); Mean Corpuscular Hemoglobin 28.9 pg (27.0-31.0); Mean Platelet Volume 11.9 fL (7.4-10.4); Platelet Count 414 10x3/uL (130-400); RBC Distribution Width 14.8 % (11.5-14.5); Red Blood Cell (RBC) Count 4.01 mill/uL (4.70-6.10); White Blood Cell (WBC) Count 11.2 10x3/uL (4.8-10.8)
[2023-07-27 06:39] LABS: Anion Gap 17 mmol/L (10-20); BUN (Urea Nitrogen) 19 mg/dL (8.4-25.7); Calc. Creatinine Clearance 40 mL/min (70-130); Calcium 8.9 mg/dL (7.8-10.44); Carbon Dioxide 26 mmol/L (23-31); Chloride 102 mmol/L (98-107); Estimated GFR 48; Glucose 139 mg/dL (83-110); Potassium 3.2 mmol/L (3.5-5.1); Sodium 142 mmol/L (136-145)
[2023-07-27] MEDS: Aspirin 81 mg Enteric Coated Tablet PO SCH (08:54)
[2023-07-27] MEDS: Sacubitril 49 MG/Valsartan 51 MG TABLET PO SCH ×2 (08:54→21:11)
[2023-07-27] MEDS: Enoxaparin 40 MG (0.4 mL) SYRINGE SC SCH (08:54)
[2023-07-27] MEDS: Tamsulosin HCl 0.4 MG CAP PO SCH (08:54)
[2023-07-27] MEDS: Mirabegron ER 25 MG ER.TAB PO SCH (08:54)
[2023-07-27] MEDS: metFORMIN 500 MG TAB PO SCH ×2 (08:54→17:40)
[2023-07-27] MEDS: Carvedilol 6.25 MG TAB PO SCH (08:55)
[2023-07-27] MEDS: BuPROPion XL 150 MG ER.TAB PO SCH (08:55)
[2023-07-27] MEDS: Venlafaxine 75 MG TAB PO SCH (08:55)
[2023-07-27] MEDS: Cholecalciferol 1,000 UNITS (25 MCG) TAB PO SCH (08:55)
[2023-07-27] MEDS: Multivit, Therapeutic 1 TAB PO SCH (08:56)
[2023-07-27] MEDS ORDERED: Potassium Chloride 20 MEQ TAB PO SCH (09:15)
[2023-07-27] MEDS ORDERED: Furosemide 40 MG (4 mL) VIAL SLOW IVP SCH (09:15)
[2023-07-27 09:37] VITALS: BMI 23.0
[2023-07-27] MEDS: Multivitamin w/Zinc Stress 1 TAB PO SCH (11:36)
[2023-07-27] MEDS: Alogliptin 25 MG TAB PO SCH (11:36)
[2023-07-27 12:25] LABS: Magnesium 1.9 mg/dL (1.6-2.6)
[2023-07-27] MEDS ORDERED: Magnesium 2 GM/50 ML(in water) 2 GM in Premix 1 BAG IVPB SCH (13:00)
[2023-07-27] MEDS: Atorvastatin Calcium 20 MG TAB PO SCH (21:11)
[2023-07-28 05:39] LABS: #Basophils 0.1 thou/uL (0.0-0.2); #Eosinphils 0.3 thou/uL (0.0-0.7); #Monocytes 1.3 thou/uL (0.11-0.59); #Neutrophils 6.1 thou/uL (1.40-6.50); %Basophils 0.7 % (0.0-1.0); %Eosinophils 2.8 % (0.0-10.0); %Lymphocytes 17.6 % (21.0-51.0); %Monocytes 13.7 % (0.0-10.0); %Neutrophils 63.9 % (42.0-75.0); Hematocrit 36.6 % (42.0-52.0); Hemoglobin 11.3 g/dL (14.0-18.0); Mean Corpuscular HGB CONC 30.9 g/dL (32.0-36.0); Mean Corpuscular Hemoglobin 28.5 pg (27.0-31.0); Mean Corpuscular Volume 92.4 fl (78.0-98.0); Platelet Count 412 10x3/uL (130-400); RBC Distribution Width 14.9 % (11.5-14.5); Red Blood Cell (RBC) Count 3.96 mill/uL (4.70-6.10); White Blood Cell (WBC) Count 9.6 10x3/uL (4.8-10.8)
[2023-07-28 06:02] LABS: Anion Gap 13 mmol/L (10-20); BUN (Urea Nitrogen) 21 mg/dL (8.4-25.7); Calc. Creatinine Clearance 41 mL/min (70-130); Calcium 8.9 mg/dL (7.8-10.44); Carbon Dioxide 29 mmol/L (23-31); Chloride 101 mmol/L (98-107); Estimated GFR 50; Glucose 134 mg/dL (83-110); Potassium 3.1 mmol/L (3.5-5.1); Sodium 140 mmol/L (136-145)
[2023-07-28] MEDS ORDERED: Potassium Chloride 20 MEQ TAB PO SCH (07:15)
[2023-07-28] MEDS: Enoxaparin 40 MG (0.4 mL) SYRINGE SC SCH (08:22)
[2023-07-28] MEDS: Sacubitril 49 MG/Valsartan 51 MG TABLET PO SCH ×2 (08:22→20:57)
[2023-07-28] MEDS: metFORMIN 500 MG TAB PO SCH ×2 (08:23→17:26)
[2023-07-28] MEDS: Carvedilol 25 MG TAB PO SCH (08:23)
[2023-07-28] MEDS: Multivit, Therapeutic 1 TAB PO SCH (08:24)
[2023-07-28] MEDS: BuPROPion XL 150 MG ER.TAB PO SCH (08:24)
[2023-07-28] MEDS: Aspirin 81 mg Enteric Coated Tablet PO SCH (08:25)
[2023-07-28] MEDS: Mirabegron ER 25 MG ER.TAB PO SCH (08:25)
[2023-07-28] MEDS: Tamsulosin HCl 0.4 MG CAP PO SCH (08:25)
[2023-07-28] MEDS: Venlafaxine 75 MG TAB PO SCH (08:25)
[2023-07-28] MEDS: Cholecalciferol 1,000 UNITS (25 MCG) TAB PO SCH (08:25)
[2023-07-28] MEDS ORDERED: Furosemide 20 MG TAB PO SCH (08:45)
[2023-07-28] MEDS: Furosemide 40 MG TAB PO SCH (09:38)
[2023-07-28] MEDS: Multivitamin w/Zinc Stress 1 TAB PO SCH (09:38)
[2023-07-28] MEDS: Alogliptin 25 MG TAB PO SCH (09:38)
[2023-07-28 14:56] LABS: Phosphorus 3.2 mg/dL (2.3-4.7)
[2023-07-28] MEDS: Atorvastatin Calcium 20 MG TAB PO SCH (20:57)
[2023-07-29 05:40] LABS: #Basophils 0.1 thou/uL (0.0-0.2); #Eosinphils 0.3 thou/uL (0.0-0.7); #Monocytes 1.5 thou/uL (0.11-0.59); #Neutrophils 7.4 thou/uL (1.40-6.50); %Basophils 0.6 % (0.0-1.0); %Eosinophils 2.6 % (0.0-10.0); %Monocytes 13.9 % (0.0-10.0); %Neutrophils 68.2 % (42.0-75.0); Hematocrit 34.6 % (42.0-52.0); Hemoglobin 10.9 g/dL (14.0-18.0); Mean Corpuscular HGB CONC 31.5 g/dL (32.0-36.0); Mean Corpuscular Hemoglobin 28.5 pg (27.0-31.0); Mean Corpuscular Volume 90.3 fl (78.0-98.0); Mean Platelet Volume 11.8 fL (7.4-10.4); Platelet Count 430 10x3/uL (130-400); Red Blood Cell (RBC) Count 3.83 mill/uL (4.70-6.10); White Blood Cell (WBC) Count 10.9 10x3/uL (4.8-10.8)
[2023-07-29 06:06] LABS: Anion Gap 14 mmol/L (10-20); BUN (Urea Nitrogen) 19 mg/dL (8.4-25.7); Calc. Creatinine Clearance 38 mL/min (70-130); Carbon Dioxide 28 mmol/L (23-31); Chloride 103 mmol/L (98-107); Estimated GFR 45; Glucose 128 mg/dL (83-110); Potassium 3.3 mmol/L (3.5-5.1); Sodium 142 mmol/L (136-145)
[2023-07-29] MEDS ORDERED: Potassium Chloride 20 MEQ TAB PO SCH (08:15)
[2023-07-29] MEDS: Multivit, Therapeutic 1 TAB PO SCH (08:56)
[2023-07-29] MEDS: Sacubitril 49 MG/Valsartan 51 MG TABLET PO SCH (08:57)
[2023-07-29] MEDS: Tamsulosin HCl 0.4 MG CAP PO SCH (08:57)
[2023-07-29] MEDS: Carvedilol 25 MG TAB PO SCH (08:57)
[2023-07-29] MEDS: BuPROPion XL 150 MG ER.TAB PO SCH (08:57)
[2023-07-29] MEDS: Cholecalciferol 1,000 UNITS (25 MCG) TAB PO SCH (08:57)
[2023-07-29] MEDS: metFORMIN 500 MG TAB PO SCH (08:57)
[2023-07-29] MEDS: Aspirin 81 mg Enteric Coated Tablet PO SCH (08:57)
[2023-07-29] MEDS: Furosemide 40 MG TAB PO SCH (08:58)
[2023-07-29] MEDS: Alogliptin 25 MG TAB PO SCH (08:58)
[2023-07-29] MEDS: Multivitamin w/Zinc Stress 1 TAB PO SCH (08:58)
[2023-07-29] MEDS: Venlafaxine 75 MG TAB PO SCH (08:59)
[2023-07-29] MEDS: Mirabegron ER 25 MG ER.TAB PO SCH (09:00)
[2023-07-29] MEDS: Enoxaparin 40 MG (0.4 mL) SYRINGE SC SCH (09:00)
[2023-07-29] MEDS ORDERED: FLU VACC QS2023(65UP)/MF59C/PF 60 MCG/0.5 ML SYRINGE IM ONE (09:00)
[2023-07-29 15:22] VITALS: BP 110/69; TEMP 98.2
== END 2023-07-29 15:51 | disposition home or self-care (01) | DRG 280 ==
LOC: ERS 10:13 → 2SW 15:07 → OBSVTOIN 16:39
PROVIDERS: ADMIT Family Medicine; ATTEND Family Medicine
DX: I13.0 Hypertensive heart and chronic kidney disease with heart failure and stage 1 through stage 4 chronic kidney disease, or unspecified chronic kidney disease (principal); I50.23 Acute on chronic systolic (congestive) heart failure; I21.A1 Myocardial infarction type 2; J44.1 Chronic obstructive pulmonary disease with (acute) exacerbation; I25.10 Atherosclerotic heart disease of native coronary artery without angina pectoris; K21.9 Gastro-esophageal reflux disease without esophagitis; N32.81 Overactive bladder; N18.30 Chronic kidney disease, stage 3 unspecified; E78.5 Hyperlipidemia, unspecified; F32.A Depression, unspecified; F41.9 Anxiety disorder, unspecified; R53.1 Weakness; E11.22 Type 2 diabetes mellitus with diabetic chronic kidney disease; E11.40 Type 2 diabetes mellitus with diabetic neuropathy, unspecified; Z79.82 Long term (current) use of aspirin; Z79.899 Other long term (current) drug therapy; Z95.1 Presence of aortocoronary bypass graft; Z90.49 Acquired absence of other specified parts of digestive tract; Z11.52 Encounter for screening for COVID-19
CPT/HCPCS: 36415; 36416; 71045; 71275; 80048; 80053; 83690; 83735; 83880; 84100; 84145; 84484; 85025; 85379; 87633; 93005; 96374; J1650; J1815; J1940; J3475; Q9967

== ENCOUNTER 2023-09-12 23:36 | Inpatient (IN) | payer MEDICARE, OTHER ==
[2023-09-13 00:19] LABS: Hematocrit 36.7 % (42.0-52.0); Hemoglobin 11.7 g/dL (14.0-18.0); Manual Diff?? YES; Mean Corpuscular HGB CONC 31.9 g/dL (32.0-36.0); Mean Corpuscular Hemoglobin 27.9 pg (27.0-31.0); Mean Corpuscular Volume 87.6 fl (78.0-98.0); Mean Platelet Volume 11.5 fL (7.4-10.4); Platelet Count 382 10x3/uL (130-400); RBC Distribution Width 15.9 % (11.5-14.5); Red Blood Cell (RBC) Count 4.19 mill/uL (4.70-6.10); White Blood Cell (WBC) Count 15.9 10x3/uL (4.8-10.8)
[2023-09-13 00:20] LABS: Delete Auto Diff?? YES
[2023-09-13 00:43] LABS: CellaVision Operator ID lab.abc; Lymphocytes 3 % (21-51); Monocytes 3 % (0-10); Neutrophil 93 % (42-75); Platelet Adequacy Comment Platelets Normal; Poikilocytosis SLIGHT = 6-15 cells HPF (0-5); Schistocytes SLIGHT = 2-5 cells HPF (0-1); Total Cell Count 100
[2023-09-13 00:47] LABS: ALT (SGPT) 10 U/L (8-55); AST (SGOT) 14 U/L (5-34); Albumin 3.8 g/dL (3.4-4.8); Alkaline Phosphatase 91 U/L (40-110); Anion Gap 16 mmol/L (10-20); BUN (Urea Nitrogen) 22 mg/dL (8.4-25.7); Bilirubin, Total 0.7 mg/dL (0.2-1.2); Calc. Creatinine Clearance 0 mL/min (70-130); Carbon Dioxide 22 mmol/L (23-31); Chloride 105 mmol/L (98-107); Estimated GFR 50; Globulin 3.1 g/dL (2.4-3.5); Glucose 170 mg/dL (83-110); Magnesium 1.6 mg/dL (1.6-2.6); Potassium 3.8 mmol/L (3.5-5.1); Protein, Total 6.9 g/dL (5.8-8.1); Sodium 139 mmol/L (136-145)
[2023-09-13 00:55] LABS: Critical Call Chem Troponin I ERS.DWZ@0055; Troponin I 0.377 ng/mL (< 0.028)
[2023-09-13] MEDS ORDERED: Aspirin Chewable 81 MG TAB ONE (01:45)
[2023-09-13] MEDS ORDERED: Furosemide 40 MG (4 mL) VIAL ONE (01:45)
[2023-09-13 02:15] LABS: SARS-CoV-2 NAA Rapid Test DETECTED (NotDetected)
[2023-09-13] MEDS ORDERED: Dextrose 50% Abboject 50 ML SYRINGE SLOW IVP PRN (03:13)
[2023-09-13] MEDS ORDERED: Insulin Regular 300 UNITS/3 ML VIAL SC PRN (03:13)
[2023-09-13] MEDS ORDERED: Glucagon 1 MG/ML KIT IM PRN (03:13)
[2023-09-13] MEDS ORDERED: Dextrose 5% in Water 1,000 ML IV PRN (03:13)
[2023-09-13] MEDS ORDERED: Calcium Carbonate 500 MG ChewTAB PO PRN (03:21)
[2023-09-13 05:18] LABS: #Monocytes 1.4 thou/uL (0.11-0.59); #Neutrophils 9.6 thou/uL (1.40-6.50); %Basophils 0.3 % (0.0-1.0); %Lymphocytes 15.1 % (21.0-51.0); %Monocytes 10.4 % (0.0-10.0); %Neutrophils 73.7 % (42.0-75.0); Mean Corpuscular HGB CONC 32.4 g/dL (32.0-36.0); Mean Corpuscular Hemoglobin 28.4 pg (27.0-31.0); Mean Corpuscular Volume 87.5 fl (78.0-98.0); Mean Platelet Volume 12.5 fL (7.4-10.4); Platelet Count 377 10x3/uL (130-400); RBC Distribution Width 15.9 % (11.5-14.5); Red Blood Cell (RBC) Count 4.23 mill/uL (4.70-6.10)
[2023-09-13 05:45] LABS: Anion Gap 15 mmol/L (10-20); BUN (Urea Nitrogen) 24 mg/dL (8.4-25.7); Calc. Creatinine Clearance 0 mL/min (70-130); Calcium 9.2 mg/dL (7.8-10.44); Carbon Dioxide 24 mmol/L (23-31); Chloride 104 mmol/L (98-107); Estimated GFR 48; Glucose 131 mg/dL (83-110); Potassium 3.6 mmol/L (3.5-5.1); Sodium 139 mmol/L (136-145)
[2023-09-13 05:56] LABS: Troponin I 2.776 ng/mL (< 0.028)
[2023-09-13 08:16] LABS: Troponin I 4.551 ng/mL (< 0.028)
[2023-09-13] MEDS ORDERED: Non-Formulary Item 1 EACH (Vitamin B Complex [Vitamin B Complex] 1 CAP Capsule) PO SCH (09:00)
[2023-09-13] MEDS ORDERED: Enoxaparin 60 MG (0.6 mL) SYRINGE SC SCH ×2 (09:15→21:00)
[2023-09-13] MEDS ORDERED: Aspirin 81 mg Enteric Coated Tablet ONE (10:34)
[2023-09-13] MEDS ORDERED: Sacubitril 49 MG/Valsartan 51 MG TABLET ONE (10:34)
[2023-09-13] MEDS ORDERED: Tamsulosin HCl 0.4 MG CAP ONE (10:34)
[2023-09-13] MEDS ORDERED: Multivit, Therapeutic 1 TAB ONE (10:35)
[2023-09-13] MEDS ORDERED: Carvedilol 6.25 MG TAB ONE (10:35)
[2023-09-13] MEDS ORDERED: Enoxaparin 40 MG (0.4 mL) SYRINGE ONE (10:35)
[2023-09-13] MEDS: Enoxaparin 40 MG (0.4 mL) SYRINGE SC SCH (10:53)
[2023-09-13] MEDS: Tamsulosin HCl 0.4 MG CAP PO SCH (10:54)
[2023-09-13] MEDS: Sacubitril 49 MG/Valsartan 51 MG TABLET PO SCH (10:54)
[2023-09-13] MEDS: Multivit, Therapeutic 1 TAB PO SCH (10:54)
[2023-09-13] MEDS: Aspirin 81 mg Enteric Coated Tablet PO SCH (10:54)
[2023-09-13] MEDS: BuPROPion XL 150 MG ER.TAB PO SCH (10:55)
[2023-09-13] MEDS: Venlafaxine 75 MG TAB PO SCH (10:56)
[2023-09-13] MEDS: Mirabegron ER 25 MG ER.TAB PO SCH (10:56)
[2023-09-13] MEDS ORDERED: Enoxaparin 80 MG (0.8 mL) SYRINGE ONE (11:07)
[2023-09-13] MEDS ORDERED: Carvedilol 25 MG TAB ONE (11:08)
[2023-09-13] MEDS: Enoxaparin 80 MG (0.8 mL) SYRINGE SC SCH (11:53)
[2023-09-13] MEDS: Carvedilol 25 MG TAB PO SCH ×2 (11:54→20:09)
[2023-09-13] MEDS: Furosemide 40 MG (4 mL) VIAL SLOW IVP SCH (14:27)
[2023-09-13] MEDS: Cholecalciferol 1,000 UNITS (25 MCG) TAB PO SCH (14:56)
[2023-09-13] MEDS: Multivitamin w/Zinc Stress 1 TAB PO SCH (14:56)
[2023-09-13] MEDS: Atorvastatin Calcium 20 MG TAB PO SCH (20:08)
[2023-09-13] MEDS ORDERED: Enoxaparin 80 MG (0.8 mL) SYRINGE SC SCH (21:00)
[2023-09-14] MEDS: Enoxaparin 80 MG (0.8 mL) SYRINGE SC SCH (00:04)
[2023-09-14 06:03] LABS: #Monocytes 1.1 thou/uL (0.11-0.59); #Neutrophils 10.1 thou/uL (1.40-6.50); %Basophils 0.3 % (0.0-1.0); %Lymphocytes 13.8 % (21.0-51.0); %Monocytes 8.6 % (0.0-10.0); Hematocrit 31.9 % (42.0-52.0); Hemoglobin 10.4 g/dL (14.0-18.0); Mean Corpuscular HGB CONC 32.6 g/dL (32.0-36.0); Mean Corpuscular Hemoglobin 28.2 pg (27.0-31.0); Mean Corpuscular Volume 86.4 fl (78.0-98.0); Mean Platelet Volume 11.8 fL (7.4-10.4); Platelet Count 323 10x3/uL (130-400); RBC Distribution Width 15.8 % (11.5-14.5); Red Blood Cell (RBC) Count 3.69 mill/uL (4.70-6.10); White Blood Cell (WBC) Count 13.1 10x3/uL (4.8-10.8)
[2023-09-14 06:22] LABS: Anion Gap 15 mmol/L (10-20); BUN (Urea Nitrogen) 24 mg/dL (8.4-25.7); Calc. Creatinine Clearance 40 mL/min (70-130); Calcium 8.6 mg/dL (7.8-10.44); Carbon Dioxide 24 mmol/L (23-31); Chloride 100 mmol/L (98-107); Estimated GFR 50; Glucose 106 mg/dL (83-110); Potassium 3.1 mmol/L (3.5-5.1); Sodium 136 mmol/L (136-145)
[2023-09-14] MEDS: Magnesium 2 GM/50 ML(in water) 2 GM in Premix 1 BAG IVPB SCH (10:48)
[2023-09-14] MEDS: Potassium Chloride 20 MEQ TAB PO SCH (10:49)
[2023-09-14 16:58] LABS: Potassium 3.4 mmol/L (3.5-5.1)
[2023-09-15 06:34] LABS: #Eosinphils 0.1 thou/uL (0.0-0.7); #Neutrophils 5.8 thou/uL (1.40-6.50); %Basophils 0.4 % (0.0-1.0); %Eosinophils 0.7 % (0.0-10.0); %Lymphocytes 21.6 % (21.0-51.0); %Monocytes 11.5 % (0.0-10.0); %Neutrophils 65.5 % (42.0-75.0); Hematocrit 36.7 % (42.0-52.0); Hemoglobin 11.9 g/dL (14.0-18.0); Mean Corpuscular HGB CONC 32.4 g/dL (32.0-36.0); Mean Corpuscular Hemoglobin 28.3 pg (27.0-31.0); Mean Corpuscular Volume 87.4 fl (78.0-98.0); Mean Platelet Volume 12.4 fL (7.4-10.4); Platelet Count 349 10x3/uL (130-400); RBC Distribution Width 15.7 % (11.5-14.5); White Blood Cell (WBC) Count 8.9 10x3/uL (4.8-10.8)
[2023-09-15 06:50] LABS: Anion Gap 16 mmol/L (10-20); BUN (Urea Nitrogen) 27 mg/dL (8.4-25.7); Calc. Creatinine Clearance 41 mL/min (70-130); Calcium 8.6 mg/dL (7.8-10.44); Carbon Dioxide 27 mmol/L (23-31); Chloride 98 mmol/L (98-107); Estimated GFR 52; Glucose 106 mg/dL (83-110); Potassium 3.4 mmol/L (3.5-5.1); Sodium 138 mmol/L (136-145)
[2023-09-15] MEDS: Potassium Chloride 20 MEQ TAB PO SCH (10:04)
[2023-09-15] MEDS ORDERED: Benzonatate 100 MG CAP PO PRN (15:38)
[2023-09-15] MEDS: HumaLOG 300 UNITS/3 ML VIAL SC PRN (18:55)
[2023-09-15] MEDS: Furosemide 80 MG TAB PO SCH (18:56)
[2023-09-15] MEDS: Carvedilol 6.25 MG TAB PO SCH (20:39)
[2023-09-16 05:20] LABS: #Eosinphils 0.1 thou/uL (0.0-0.7); #Monocytes 1.1 thou/uL (0.11-0.59); #Neutrophils 4.5 thou/uL (1.40-6.50); %Basophils 0.3 % (0.0-1.0); %Eosinophils 1.2 % (0.0-10.0); %Lymphocytes 33.1 % (21.0-51.0); %Monocytes 13.2 % (0.0-10.0); Hematocrit 40.5 % (42.0-52.0); Hemoglobin 13.1 g/dL (14.0-18.0); Mean Corpuscular HGB CONC 32.3 g/dL (32.0-36.0); Mean Corpuscular Hemoglobin 28.4 pg (27.0-31.0); Mean Corpuscular Volume 87.7 fl (78.0-98.0); Platelet Count 414 10x3/uL (130-400); RBC Distribution Width 15.8 % (11.5-14.5); Red Blood Cell (RBC) Count 4.62 mill/uL (4.70-6.10); White Blood Cell (WBC) Count 8.7 10x3/uL (4.8-10.8)
[2023-09-16 05:52] LABS: Anion Gap 16 mmol/L (10-20); BUN (Urea Nitrogen) 38 mg/dL (8.4-25.7); Calc. Creatinine Clearance 33 mL/min (70-130); Carbon Dioxide 29 mmol/L (23-31); Chloride 99 mmol/L (98-107); Estimated GFR 41; Glucose 110 mg/dL (83-110); Potassium 3.7 mmol/L (3.5-5.1); Sodium 140 mmol/L (136-145)
[2023-09-16] MEDS ORDERED: Communication Order-Pharmacy FS SCH (09:15)
[2023-09-16] MEDS: Potassium Chloride 20 MEQ TAB PO SCH (10:09)
[2023-09-16] MEDS: Sodium Chloride 0.9% 1,000 ML IV SCH (16:35)
[2023-09-17 05:36] LABS: #Eosinphils 0.1 thou/uL (0.0-0.7); #Monocytes 1.4 thou/uL (0.11-0.59); #Neutrophils 5.1 thou/uL (1.40-6.50); %Basophils 0.4 % (0.0-1.0); %Lymphocytes 30.2 % (21.0-51.0); %Monocytes 14.7 % (0.0-10.0); %Neutrophils 53.4 % (42.0-75.0); Hematocrit 43.1 % (42.0-52.0); Hemoglobin 13.6 g/dL (14.0-18.0); Mean Corpuscular HGB CONC 31.6 g/dL (32.0-36.0); Mean Corpuscular Hemoglobin 27.7 pg (27.0-31.0); Mean Corpuscular Volume 87.8 fl (78.0-98.0); Mean Platelet Volume 12.8 fL (7.4-10.4); Platelet Count 369 10x3/uL (130-400); RBC Distribution Width 15.9 % (11.5-14.5); Red Blood Cell (RBC) Count 4.91 mill/uL (4.70-6.10); White Blood Cell (WBC) Count 9.6 10x3/uL (4.8-10.8)
[2023-09-17 06:01] LABS: Anion Gap 14 mmol/L (10-20); BUN (Urea Nitrogen) 33 mg/dL (8.4-25.7); Calc. Creatinine Clearance 41 mL/min (70-130); Calcium 9.3 mg/dL (7.8-10.44); Carbon Dioxide 24 mmol/L (23-31); Chloride 103 mmol/L (98-107); Estimated GFR 53; Glucose 112 mg/dL (83-110); Potassium 4.1 mmol/L (3.5-5.1); Sodium 137 mmol/L (136-145)
[2023-09-17] MEDS ORDERED: Heparin 10,000 UNITS/ 10 ML VIAL ONE (06:01)
[2023-09-17] MEDS ORDERED: Midazolam HCl 2 mg/2 ml Vial ONE (06:01)
[2023-09-17] MEDS ORDERED: Nitroglycerin 50 MG/250 ML BOT 0 ML ONE (06:01)
[2023-09-17] MEDS ORDERED: fentaNYL 50 mcg/mL 1 mL Vial ONE (06:01)
[2023-09-17] MEDS ORDERED: Lidocaine 1% (PF) 30 ML VIAL ONE (06:01)
[2023-09-17] MEDS ORDERED: Protamine Sulfate 50 MG/5 ML VIAL ONE (07:54)
[2023-09-17] MEDS ORDERED: Nitroglycerin 0.4 MG TAB (25 Tab Bottle) SL PRN (08:12)
[2023-09-17] MEDS ORDERED: Acetaminophen/Codeine 30-300mg Tablet PO PRN ×2 (08:12)
[2023-09-17] MEDS ORDERED: Sodium Chloride 0.9% 200 ML IV PRN (08:12)
[2023-09-17] MEDS: Sodium Chloride 0.9% 1,000 ML IV SCH (10:03)
[2023-09-17] MEDS ORDERED: Iopamidol 370 76% 100 ML VIAL ONE (13:35)
[2023-09-18 04:43] LABS: #Basophils 0.1 thou/uL (0.0-0.2); #Eosinphils 0.1 thou/uL (0.0-0.7); #Monocytes 1.5 thou/uL (0.11-0.59); #Neutrophils 5.3 thou/uL (1.40-6.50); %Basophils 0.5 % (0.0-1.0); %Eosinophils 1.1 % (0.0-10.0); %Lymphocytes 29.6 % (21.0-51.0); %Neutrophils 53.5 % (42.0-75.0); Hematocrit 36.6 % (42.0-52.0); Hemoglobin 11.8 g/dL (14.0-18.0); Mean Corpuscular HGB CONC 32.2 g/dL (32.0-36.0); Mean Corpuscular Hemoglobin 28.1 pg (27.0-31.0); Mean Corpuscular Volume 87.1 fl (78.0-98.0); Mean Platelet Volume 12.1 fL (7.4-10.4); Platelet Count 382 10x3/uL (130-400); RBC Distribution Width 15.9 % (11.5-14.5)
[2023-09-18 05:07] LABS: Anion Gap 12 mmol/L (10-20); BUN (Urea Nitrogen) 26 mg/dL (8.4-25.7); Calc. Creatinine Clearance 44 mL/min (70-130); Calcium 8.9 mg/dL (7.8-10.44); Carbon Dioxide 28 mmol/L (23-31); Cardiac Risk 2.9 (Less than 4.5); Chloride 105 mmol/L (98-107); Cholesterol 97 mg/dl (< 200 Desired); Estimated GFR 58; Glucose 102 mg/dL (83-110); HDL Cholesterol 33 mg/dL (>60 Neg Risk); LDL Cholesterol, Calculated 55 mg/dL; Potassium 4.3 mmol/L (3.5-5.1); Sodium 141 mmol/L (136-145); Triglycerides 46 mg/dL (Less than 150)
[2023-09-18] MEDS: Furosemide 40 MG TAB PO SCH (09:06)
[2023-09-18] MEDS: Sacubitril 49 MG/Valsartan 51 MG TABLET PO SCH (09:06)
[2023-09-18] MEDS: Potassium Chloride 10 MEQ TAB PO SCH (09:06)
[2023-09-18] MEDS ORDERED: Polyethylene Glycol 3350 17 GM Packet PO PRN (11:19)
[2023-09-18] MEDS: Polyethylene Glycol 3350 17 GM Packet PO SCH (12:05)
[2023-09-19 05:07] LABS: #Eosinphils 0.1 thou/uL (0.0-0.7); #Monocytes 1.8 thou/uL (0.11-0.59); #Neutrophils 14.1 thou/uL (1.40-6.50); %Basophils 0.2 % (0.0-1.0); %Eosinophils 0.3 % (0.0-10.0); %Lymphocytes 13.9 % (21.0-51.0); %Monocytes 9.4 % (0.0-10.0); %Neutrophils 75.8 % (42.0-75.0); Hematocrit 37.3 % (42.0-52.0); Mean Corpuscular HGB CONC 32.2 g/dL (32.0-36.0); Mean Corpuscular Hemoglobin 27.8 pg (27.0-31.0); Mean Corpuscular Volume 86.5 fl (78.0-98.0); Mean Platelet Volume 11.8 fL (7.4-10.4); Platelet Count 412 10x3/uL (130-400); RBC Distribution Width 15.9 % (11.5-14.5); Red Blood Cell (RBC) Count 4.31 mill/uL (4.70-6.10); White Blood Cell (WBC) Count 18.6 10x3/uL (4.8-10.8)
[2023-09-19 05:37] LABS: Anion Gap 13 mmol/L (10-20); BUN (Urea Nitrogen) 24 mg/dL (8.4-25.7); Calc. Creatinine Clearance 44 mL/min (70-130); Calcium 9.3 mg/dL (7.8-10.44); Carbon Dioxide 28 mmol/L (23-31); Chloride 101 mmol/L (98-107); Estimated GFR 58; Glucose 146 mg/dL (83-110); Potassium 3.7 mmol/L (3.5-5.1); Sodium 138 mmol/L (136-145)
[2023-09-19] MEDS: Lactated Ringer's 500 ML IV SCH (14:41)
[2023-09-20 06:11] LABS: Hematocrit 36.8 % (42.0-52.0); Hemoglobin 11.8 g/dL (14.0-18.0); Manual Diff?? YES; Mean Corpuscular HGB CONC 32.1 g/dL (32.0-36.0); Mean Corpuscular Hemoglobin 27.6 pg (27.0-31.0); Mean Corpuscular Volume 86.2 fl (78.0-98.0); Mean Platelet Volume 11.6 fL (7.4-10.4); Platelet Count 435 10x3/uL (130-400); Red Blood Cell (RBC) Count 4.27 mill/uL (4.70-6.10); White Blood Cell (WBC) Count 32.4 10x3/uL (4.8-10.8)
[2023-09-20 06:21] LABS: Delete Auto Diff?? YES
[2023-09-20 06:34] LABS: Anion Gap 14 mmol/L (10-20); BUN (Urea Nitrogen) 22 mg/dL (8.4-25.7); Calc. Creatinine Clearance 41 mL/min (70-130); Calcium 9.1 mg/dL (7.8-10.44); Carbon Dioxide 29 mmol/L (23-31); Chloride 99 mmol/L (98-107); Estimated GFR 52; Glucose 122 mg/dL (83-110); Potassium 3.7 mmol/L (3.5-5.1); Sodium 138 mmol/L (136-145)
[2023-09-20 06:47] LABS: Anisocytosis SLIGHT = 6-15 cells HPF (0-5); Band 2 % (5-11); CellaVision Operator ID lab.sh2; Lymphocytes 6 % (21-51); Monocytes 8 % (0-10); Neutrophil 84 % (42-75); Ovalocytes SLIGHT = 2-5 cells HPF (0-1); Platelet Adequacy Comment Platelets Increased; Poikilocytosis MODERATE=16-30 cells HPF (0-5); Polychromasia SLIGHT = 2-3 cells HPF (0-2); Schistocytes SLIGHT = 2-5 cells HPF (0-1); Total Cell Count 100
[2023-09-20 12:08] VITALS: BMI 22.1
[2023-09-20 12:38] LABS: Bacteria/HPF 1+ HPF (None Seen); Bilirubin Negative (Negative); Blood, Urine Negative (Negative); CAUTI Indications for Culture Dysuria,urgency,freq; Clarity Turbid (Clear); Glucose, Urine (Dipstick) Normal (Negative); Ketone, Urine Negative (Negative); Leukocyte 500 Leu/uL (Negative); Nitrite Negative (Negative); Protein, Urine (Dipstick) 30 mg/dL (Neg-Trace); RBC/HPF 0-3 HPF (0-3); Specific Gravity, Urine 1.018 (1.002-1.036); Squamous Epithelial None Seen HPF (0-3); WBC/HPF Greater than 50 HPF (0-3); pH, Urine 5.5 (5.0-9.0)
[2023-09-20 12:41] LABS: Urine Culture Reflex Yes Yes
[2023-09-20] MEDS: cefTRIAXone\\ROCEPHIN 1 GM in Sodium Chloride 0.9% 100 ML IVPB SCH (15:45)
[2023-09-20] MEDS: Ciprofloxacin 500 MG TAB PO SCH (20:54)
[2023-09-21 07:30] LABS: #Eosinphils 0.2 thou/uL (0.0-0.7); #Monocytes 2.4 thou/uL (0.11-0.59); #Neutrophils 19.1 thou/uL (1.40-6.50); %Basophils 0.1 % (0.0-1.0); %Eosinophils 0.8 % (0.0-10.0); %Monocytes 9.5 % (0.0-10.0); %Neutrophils 77.2 % (42.0-75.0); Hematocrit 33.9 % (42.0-52.0); Hemoglobin 11.1 g/dL (14.0-18.0); Mean Corpuscular HGB CONC 32.7 g/dL (32.0-36.0); Mean Corpuscular Hemoglobin 28.5 pg (27.0-31.0); Mean Corpuscular Volume 87.1 fl (78.0-98.0); Mean Platelet Volume 11.4 fL (7.4-10.4); Platelet Count 461 10x3/uL (130-400); RBC Distribution Width 15.9 % (11.5-14.5); Red Blood Cell (RBC) Count 3.89 mill/uL (4.70-6.10); White Blood Cell (WBC) Count 24.7 10x3/uL (4.8-10.8)
[2023-09-21 07:57] LABS: Anion Gap 12 mmol/L (10-20); BUN (Urea Nitrogen) 25 mg/dL (8.4-25.7); Calc. Creatinine Clearance 38 mL/min (70-130); Calcium 9.2 mg/dL (7.8-10.44); Carbon Dioxide 30 mmol/L (23-31); Chloride 101 mmol/L (98-107); Estimated GFR 47; Glucose 108 mg/dL (83-110); Potassium 3.9 mmol/L (3.5-5.1); Sodium 139 mmol/L (136-145)
[2023-09-21 15:39] VITALS: BP 114/62; TEMP 97.9
== END 2023-09-21 16:30 | disposition home or self-care (01) | DRG 177 ==
LOC: ERS 23:36 → ERHOLD 09-13 02:54 → 2NO 09-13 14:02
PROVIDERS: ADMIT Emergency Medicine; ATTEND Emergency Medicine
PROC: 4A023N7 Measurement of Cardiac Sampling and Pressure, Left Heart, Percutaneous Approach (ICD-10-PCS; principal; 2023-09-17)
PROC: B2111ZZ Fluoroscopy of Multiple Coronary Arteries using Low Osmolar Contrast (ICD-10-PCS; 2023-09-17)
PROC: B2121ZZ Fluoroscopy of Single Coronary Artery Bypass Graft using Low Osmolar Contrast (ICD-10-PCS; 2023-09-17)
DX: U07.1 COVID-19 (principal); I21.A1 Myocardial infarction type 2; I50.23 Acute on chronic systolic (congestive) heart failure; J96.01 Acute respiratory failure with hypoxia; N17.9 Acute kidney failure, unspecified; N39.0 Urinary tract infection, site not specified; E87.6 Hypokalemia; I25.10 Atherosclerotic heart disease of native coronary artery without angina pectoris; F41.9 Anxiety disorder, unspecified; F32.A Depression, unspecified; N32.81 Overactive bladder; E78.5 Hyperlipidemia, unspecified; I45.81 Long QT syndrome; E11.22 Type 2 diabetes mellitus with diabetic chronic kidney disease; E11.40 Type 2 diabetes mellitus with diabetic neuropathy, unspecified; N18.9 Chronic kidney disease, unspecified; N41.9 Inflammatory disease of prostate, unspecified; Z95.1 Presence of aortocoronary bypass graft; Z79.899 Other long term (current) drug therapy
CPT/HCPCS: 36415; 36416; 71045; 80048; 80053; 80061; 81001; 83605; 83735; 83880; 84145; 84484; 85025; 85347; 87040; 87077; 87086; 87186; 93005; 93306; 93455; 93798; 96374; 97139; 99152; 99153; C1769; J0696; J1644; J1650; J1815; J1940; J2001; J2250; J2720; J3010; J3475; J3490; J7050; J7120; Q9967

== ENCOUNTER 2023-10-27 03:54 | Inpatient (IN) | payer MEDICARE, OTHER ==
[2023-10-27 04:54] LABS: #Basophils 0.06 10x3/uL (0.0-0.2); %Basophils 0.4 % (0.0-1.0); %Eosinophils 1.2 % (0.0-10.0); %Lymphocytes 17.5 % (21.0-51.0); %Monocytes 11.3 % (0.0-10.0); %Neutrophils 68.8 % (42.0-75.0); Hematocrit 38.6 % (42.0-52.0); Hemoglobin 12.6 g/dL (14.0-18.0); Mean Corpuscular HGB CONC 32.6 g/dL (32.0-36.0); Mean Corpuscular Hemoglobin 27.8 pg (27.0-31.0); Mean Corpuscular Volume 85.2 fL (78.0-98.0); Mean Platelet Volume 11.8 fL (7.4-10.4); Platelet Count 451 10x3/uL (130-400); RBC Distribution Width 17.5 % (11.5-14.5); Red Blood Cell (RBC) Count 4.53 mill/uL (4.70-6.10)
[2023-10-27 05:12] LABS: INR-International Normal Ratio 0.9; Prothrombin Time 12.3 sec (12.0-14.7)
[2023-10-27 05:13] LABS: PTT 27.6 sec (22.9-36.1)
[2023-10-27 05:23] LABS: ALT (SGPT) 19 U/L (8-55); AST (SGOT) 22 U/L (5-34); Alkaline Phosphatase 103 U/L (40-110); Anion Gap 14 mmol/L (10-20); BUN (Urea Nitrogen) 46 mg/dL (8.4-25.7); Bilirubin, Total 0.5 mg/dL (0.2-1.2); Calc. Creatinine Clearance 0 mL/min (70-130); Calcium 9.9 mg/dL (7.8-10.44); Carbon Dioxide 31 mmol/L (23-31); Chloride 99 mmol/L (98-107); Estimated GFR 35; Globulin 3.8 g/dL (2.4-3.5); Glucose 145 mg/dL (83-110); Magnesium 1.8 mg/dL (1.6-2.6); Potassium 3.9 mmol/L (3.5-5.1); Protein, Total 7.8 g/dL (5.8-8.1); Sodium 140 mmol/L (136-145)
[2023-10-27 05:26] LABS: Troponin I 0.097 ng/mL (< 0.028)
[2023-10-27] MEDS ORDERED: Sodium Chloride 0.9% 100 ML ONE (06:30)
[2023-10-27] MEDS ORDERED: Cefepime 2 GM VIAL ONE (06:30)
[2023-10-27] MEDS ORDERED: Aspirin Chewable 81 MG TAB ONE (07:22)
[2023-10-27 07:28] LABS: Bacteria/HPF None Seen HPF (None Seen); Bilirubin Negative (Negative); Blood, Urine Negative (Negative); CAUTI Indications for Culture Dysuria,urgency,freq; Clarity Clear (Clear); Glucose, Urine (Dipstick) Normal (Negative); Ketone, Urine Negative (Negative); Leukocyte Negative Leu/uL (Negative); Nitrite Negative (Negative); Protein, Urine (Dipstick) Negative (Neg-Trace); RBC/HPF None Seen HPF (0-3); Specific Gravity, Urine 1.016 (1.002-1.036); Squamous Epithelial None Seen HPF (0-3); Urobilinogen Normal mg/dL (Less than 2); WBC/HPF 0-3 HPF (0-3)
[2023-10-27 07:30] LABS: Urine Culture Reflex No No
[2023-10-27 08:01] LABS: Lactic Acid 2.1 mmol/L (0.5-2.2)
[2023-10-27 08:10] LABS: Troponin I 0.062 ng/mL (< 0.028)
[2023-10-27] MEDS ORDERED: Calcium Carbonate 500 MG ChewTAB PO PRN (08:21)
[2023-10-27] MEDS ORDERED: Senokot S 8.6-50 MG TAB PO PRN (08:21)
[2023-10-27] MEDS ORDERED: Acetaminophen 325 MG TAB PO PRN (08:21)
[2023-10-27] MEDS: Vancomycin (BATCH) 1.5 GM in Premix 1 BAG IVPB SCH (08:33)
[2023-10-27] MEDS ORDERED: Enoxaparin 40 MG (0.4 mL) SYRINGE SC SCH (09:00)
[2023-10-27] MEDS ORDERED: Iopamidol 370 76% 100 ML VIAL ONE (09:58)
[2023-10-27] MEDS: Lactated Ringer's 1,000 ML IV SCH (10:00)
[2023-10-27] MEDS: Magnesium 2 GM/50 ML(in water) 2 GM in Premix 1 BAG IVPB SCH (13:13)
[2023-10-27] MEDS ORDERED: Magnesium 2 GM/50 ML BAG (IN WATER) ONE (13:13)
[2023-10-27] MEDS ORDERED: HumaLOG 300 UNITS/3 ML VIAL SC PRN (18:05)
[2023-10-27] MEDS ORDERED: Dextrose 50% Abboject 50 ML SYRINGE SLOW IVP PRN (18:05)
[2023-10-27] MEDS ORDERED: Dextrose 5% in Water 1,000 ML IV PRN (18:05)
[2023-10-27] MEDS ORDERED: Glucagon 1 MG/ML KIT IM PRN (18:05)
[2023-10-27] MEDS: Acetaminophen 500 MG TAB PO SCH (18:20)
[2023-10-27 18:58] LABS: Troponin I 0.069 ng/mL (< 0.028)
[2023-10-27] MEDS ORDERED: Tamsulosin HCl 0.4 MG CAP PO SCH (21:00)
[2023-10-27] MEDS ORDERED: Sacubitril 49 MG/Valsartan 51 MG TABLET PO SCH (21:00)
[2023-10-27] MEDS: Aspirin 81 mg Enteric Coated Tablet PO SCH (21:55)
[2023-10-27] MEDS: Rosuvastatin 20 MG TAB PO SCH (21:55)
[2023-10-27] MEDS: Alogliptin 6.25 MG TAB PO SCH (21:56)
[2023-10-27] MEDS: Enoxaparin 60 MG (0.6 mL) SYRINGE SC SCH (21:56)
[2023-10-28 05:17] LABS: #Basophils 0.07 10x3/uL (0.0-0.2); %Basophils 0.4 % (0.0-1.0); %Eosinophils 1.4 % (0.0-10.0); %Monocytes 15.7 % (0.0-10.0); %Neutrophils 66.7 % (42.0-75.0); Hematocrit 31.9 % (42.0-52.0); Hemoglobin 10.5 g/dL (14.0-18.0); Mean Corpuscular HGB CONC 32.9 g/dL (32.0-36.0); Mean Corpuscular Hemoglobin 28.2 pg (27.0-31.0); Mean Corpuscular Volume 85.5 fL (78.0-98.0); Mean Platelet Volume 12.1 fL (7.4-10.4); Platelet Count 403 10x3/uL (130-400); RBC Distribution Width 17.3 % (11.5-14.5); Red Blood Cell (RBC) Count 3.73 mill/uL (4.70-6.10)
[2023-10-28 05:44] LABS: Anion Gap 10 mmol/L (10-20); BUN (Urea Nitrogen) 36 mg/dL (8.4-25.7); Calc. Creatinine Clearance 33 mL/min (70-130); Calcium 9.1 mg/dL (7.8-10.44); Carbon Dioxide 32 mmol/L (23-31); Chloride 103 mmol/L (98-107); Estimated GFR 42; Glucose 122 mg/dL (83-110); Sodium 141 mmol/L (136-145)
[2023-10-28] MEDS ORDERED: Communication Order-Pharmacy FS SCH (08:21)
[2023-10-28 08:53] LABS: Hematocrit 30.9 % (42.0-52.0); Hemoglobin 10.3 g/dL (14.0-18.0); Platelet Count 400 10x3/uL (130-400)
[2023-10-28] MEDS ORDERED: Enoxaparin 80 MG (0.8 mL) SYRINGE SC SCH (09:00)
[2023-10-28] MEDS: Magnesium Oxide 250 MG TAB PO SCH (09:14)
[2023-10-28] MEDS: Venlafaxine 75 MG TAB PO SCH (09:14)
[2023-10-28] MEDS: Multivit, Therapeutic 1 TAB PO SCH (09:14)
[2023-10-28] MEDS: BuPROPion XL 150 MG ER.TAB PO SCH (09:14)
[2023-10-28] MEDS: Mirabegron ER 25 MG ER.TAB PO SCH (09:14)
[2023-10-28] MEDS: Cyanocobalamin (Vitamin B-12) 1,000 MCG TAB PO SCH (09:15)
[2023-10-28 09:47] VITALS: BMI 21.9
[2023-10-28] MEDS: Lactated Ringer's 1,000 ML IV SCH (11:41)
[2023-10-28] MEDS: Colchicine 0.6 MG TAB PO SCH (15:33)
[2023-10-28] MEDS ORDERED: Enoxaparin 60 MG (0.6 mL) SYRINGE SC SCH (21:00)
[2023-10-28] MEDS: Apixaban 5 MG TAB PO SCH (21:24)
[2023-10-29 04:32] LABS: Anion Gap 12 mmol/L (10-20); BUN (Urea Nitrogen) 23 mg/dL (8.4-25.7); Calc. Creatinine Clearance 42 mL/min (70-130); Calcium 8.8 mg/dL (7.8-10.44); Carbon Dioxide 29 mmol/L (23-31); Chloride 104 mmol/L (98-107); Estimated GFR 55; Glucose 94 mg/dL (83-110); Hematocrit 30.1 % (42.0-52.0); Hemoglobin 9.9 g/dL (14.0-18.0); Mean Corpuscular HGB CONC 32.9 g/dL (32.0-36.0); Mean Corpuscular Hemoglobin 27.7 pg (27.0-31.0); Mean Corpuscular Volume 84.3 fL (78.0-98.0); Mean Platelet Volume 12.1 fL (7.4-10.4); Platelet Count 372 10x3/uL (130-400); Potassium 3.6 mmol/L (3.5-5.1); RBC Distribution Width 17.6 % (11.5-14.5); Red Blood Cell (RBC) Count 3.57 mill/uL (4.70-6.10); Sodium 141 mmol/L (136-145)
[2023-10-29 05:27] LABS: Anisocytosis SLIGHT = 6-15 cells HPF (0-5); Burr Cells SLIGHT = 2-5 cells HPF (0-1); Eosinophils 1 % (0-10); Lymphocytes 20 % (21-51); Monocytes 10 % (0-10); Neutrophil 68 % (42-75); Ovalocytes SLIGHT = 2-5 cells HPF (0-1); Platelet Adequacy Comment Platelets Normal; Poikilocytosis MODERATE=16-30 cells HPF (0-5); Polychromasia SLIGHT = 2-3 cells HPF (0-2); Schistocytes SLIGHT = 2-5 cells HPF (0-1)
[2023-10-29] MEDS: Venlafaxine HCl XR 75 MG CAP PO SCH (08:22)
[2023-10-29] MEDS ORDERED: Promethazine HCl 25 MG/ML VIAL IM PRN (13:45)
[2023-10-29] MEDS ORDERED: Ondansetron HCl/PF 4 MG/2 ML Vial IVP PRN (13:45)
[2023-10-29] MEDS ORDERED: Etomidate 40 MG (20 mL) VIAL ONE (13:47)
[2023-10-29] MEDS ORDERED: Lidocaine 1% PF 5 ML VIAL ONE (13:52)
[2023-10-29] MEDS ORDERED: PROPOFOL 200 MG/20 ML VIAL ONE (13:52)
[2023-10-29] MEDS: Carvedilol 3.125 MG TAB PO SCH (16:18)
[2023-10-29] MEDS: Sacubitril 24MG/Valsartan 26 MG TAB PO SCH (22:51)
[2023-10-30 05:03] LABS: #Basophils 0.07 10x3/uL (0.0-0.2); %Basophils 0.6 % (0.0-1.0); %Lymphocytes 24.4 % (21.0-51.0); %Monocytes 15.9 % (0.0-10.0); %Neutrophils 56.5 % (42.0-75.0); Hematocrit 29.7 % (42.0-52.0); Hemoglobin 9.6 g/dL (14.0-18.0); Mean Corpuscular HGB CONC 32.3 g/dL (32.0-36.0); Mean Corpuscular Hemoglobin 27.4 pg (27.0-31.0); Mean Corpuscular Volume 84.6 fL (78.0-98.0); Mean Platelet Volume 11.9 fL (7.4-10.4); Platelet Count 353 10x3/uL (130-400); RBC Distribution Width 17.8 % (11.5-14.5); Red Blood Cell (RBC) Count 3.51 mill/uL (4.70-6.10)
[2023-10-30 05:21] LABS: Anion Gap 13 mmol/L (10-20); BUN (Urea Nitrogen) 20 mg/dL (8.4-25.7); Calc. Creatinine Clearance 46 mL/min (70-130); Calcium 8.9 mg/dL (7.8-10.44); Carbon Dioxide 26 mmol/L (23-31); Chloride 106 mmol/L (98-107); Estimated GFR 60; Glucose 88 mg/dL (83-110); Potassium 3.6 mmol/L (3.5-5.1); Sodium 141 mmol/L (136-145)
[2023-10-30] MEDS ORDERED: Carvedilol 3.125 MG TAB PO SCH (08:19)
[2023-10-30] MEDS: Empagliflozin 10 MG TAB PO SCH (10:17)
[2023-10-30] MEDS: Carvedilol 6.25 MG TAB PO SCH (10:19)
[2023-10-30 12:18] VITALS: TEMP 98
[2023-10-30] MEDS: HumaLOG 300 UNITS/3 ML VIAL SC PRN (12:35)
[2023-10-30 13:31] VITALS: BP 157/74
== END 2023-10-30 14:00 | disposition home or self-care (01) | DRG 312 ==
LOC: ERS 03:54 → ERHOLD 07:17 → 2NO 14:01
PROVIDERS: ADMIT Family Medicine; ATTEND Family Medicine
PROC: B24BZZ4 Ultrasonography of Heart with Aorta, Transesophageal (ICD-10-PCS; principal; 2023-10-29)
PROC: 5A2204Z Restoration of Cardiac Rhythm, Single (ICD-10-PCS; 2023-10-29)
DX: I95.1 Orthostatic hypotension (principal); E43 Unspecified severe protein-calorie malnutrition; I48.92 Unspecified atrial flutter; E87.20 Acidosis, unspecified; N17.9 Acute kidney failure, unspecified; I50.22 Chronic systolic (congestive) heart failure; I13.0 Hypertensive heart and chronic kidney disease with heart failure and stage 1 through stage 4 chronic kidney disease, or unspecified chronic kidney disease; E78.5 Hyperlipidemia, unspecified; N40.0 Benign prostatic hyperplasia without lower urinary tract symptoms; F41.9 Anxiety disorder, unspecified; F32.A Depression, unspecified; I25.2 Old myocardial infarction; N18.9 Chronic kidney disease, unspecified; E11.22 Type 2 diabetes mellitus with diabetic chronic kidney disease; Z90.89 Acquired absence of other organs; Z79.84 Long term (current) use of oral hypoglycemic drugs; Z79.899 Other long term (current) drug therapy; I25.5 Ischemic cardiomyopathy; M10.9 Gout, unspecified; N32.81 Overactive bladder
CPT/HCPCS: 36415; 36416; 70450; 71045; 71275; 80048; 80053; 81001; 83605; 83735; 83880; 84145; 84443; 84484; 85025; 85610; 85730; 86140; 87040; 87086; 92960; 93005; 93010; 93312; 96361; 96365; 96367; J0692; J1650; J1815; J3370; J3475; J3490; J7120; Q9967

== ENCOUNTER 2025-04-05 00:34 | Inpatient (IN) | payer MEDICARE, OTHER ==
[2025-04-05 01:43] LABS: Hematocrit 38.7 % (42.0-52.0); Hemoglobin 12.0 g/dL (14.0-18.0); Mean Corpuscular Hemoglobin 27.9 pg (27.0-31.0); Mean Corpuscular Volume 90.0 fL (78.0-98.0); Platelet Count 402 10x3/uL (130-400); Red Blood Cell (RBC) Count 4.30 mill/uL (4.70-6.10); White Blood Cell (WBC) Count 16.04 10x3/uL (4.8-10.8)
[2025-04-05 01:59] LABS: ALT (SGPT) 52 U/L (Less than 45); AST (SGOT) 54 U/L (11-34); Albumin 3.5 g/dL (3.1-4.5); Alkaline Phosphatase 188 U/L (40-110); Anion Gap 13 mmol/L (10-20); BUN (Urea Nitrogen) 28 mg/dL (8.4-25.7); Bilirubin, Total 0.3 mg/dL (0.3-1.2); Calc. Creatinine Clearance 0 mL/min (70-130); Calcium 9.1 mg/dL (7.8-10.44); Carbon Dioxide 22 mmol/L (23-31); Chloride 108 mmol/L (98-107); Globulin 3.5 g/dL (2.4-3.5); Glucose 233 mg/dL (83-110); Potassium 4.1 mmol/L (3.5-5.1); Sodium 139 mmol/L (136-145)
[2025-04-05 02:09] LABS: Platelet Adequacy Comment Platelets Normal; Poikilocytosis SLIGHT = 6-15 cells HPF (0-5); Polychromasia SLIGHT = 2-3 cells HPF (0-2)
[2025-04-05] MEDS ORDERED: Enoxaparin 80 MG (0.8 mL) SYRINGE SC ONE (05:52)
[2025-04-05] MEDS ORDERED: Furosemide 20 MG (2 mL) VIAL ONE (06:05)
[2025-04-05] MEDS ORDERED: Heparin 10,000 UNITS/ 10 ML VIAL SLOW IVP SCH (06:15)
[2025-04-05 06:19] LABS: Magnesium 2.0 mg/dL (1.6-2.6)
[2025-04-05 06:35] VITALS: BMI 24.2
[2025-04-05 06:50] LABS: Hematocrit 37.4 % (42.0-52.0); Hemoglobin 11.7 g/dL (14.0-18.0); Platelet Count 398 10x3/uL (130-400)
[2025-04-05] MEDS: Furosemide 40 MG (4 mL) VIAL SLOW IVP SCH (07:36)
[2025-04-05] MEDS ORDERED: Aspirin 81 mg Enteric Coated Tablet ONE (09:10)
[2025-04-05] MEDS ORDERED: Pantoprazole 40 MG DR.TAB ONE (09:11)
[2025-04-05] MEDS: Aspirin 81 mg Enteric Coated Tablet PO SCH (09:14)
[2025-04-05] MEDS: Pantoprazole 40 MG DR.TAB PO SCH (09:14)
[2025-04-05] MEDS: BuPROPion XL 150 MG ER.TAB PO SCH (09:15)
[2025-04-05] MEDS: Sacubitril 24MG/Valsartan 26 MG TAB PO SCH ×2 (12:53→21:30)
[2025-04-05] MEDS: Carvedilol 6.25 MG TAB PO SCH ×2 (12:53→16:07)
[2025-04-05] MEDS ORDERED: Nitroglycerin 0.4 MG TAB 1 EACH SL PRN (15:03)
[2025-04-05] MEDS ORDERED: Carvedilol 6.25 MG TAB PO SCH (17:00)
[2025-04-05] MEDS: Enoxaparin 80 MG (0.8 mL) SYRINGE SC SCH (18:35)
[2025-04-05] MEDS ORDERED: Mirabegron ER 25 MG ER.TAB PO SCH (21:00)
[2025-04-05] MEDS ORDERED: Apixaban 5 MG TAB PO SCH (21:00)
[2025-04-05] MEDS ORDERED: Pantoprazole 40 MG DR.TAB PO SCH (21:00)
[2025-04-05] MEDS ORDERED: Sacubitril 24MG/Valsartan 26 MG TAB PO SCH (21:00)
[2025-04-05] MEDS ORDERED: LINAGLIPTIN 5 MG TAB PO SCH (21:00)
[2025-04-05] MEDS: Cyanocobalamin (Vitamin B-12) 1,000 MCG TAB PO SCH (21:31)
[2025-04-06 05:09] LABS: #Basophils 0.08 10x3/uL (0.0-0.2); #Eosinophils 0.21 10x3/uL (0.0-0.7); #Monocytes 1.59 10x3/uL (0.11-0.59); #Neutrophils 7.20 10x3/uL (1.40-6.50); %Basophils 0.7 % (0.0-1.0); %Eosinophils 1.8 % (0.0-10.0); %Lymphocytes 21.0 % (21.0-51.0); %Monocytes 13.7 % (0.0-10.0); %Neutrophils 62.2 % (42.0-75.0); Hematocrit 38.7 % (42.0-52.0); Hemoglobin 12.3 g/dL (14.0-18.0); Mean Corpuscular Hemoglobin 27.9 pg (27.0-31.0); Mean Corpuscular Volume 87.8 fL (78.0-98.0); Platelet Count 426 10x3/uL (130-400); Red Blood Cell (RBC) Count 4.41 mill/uL (4.70-6.10); White Blood Cell (WBC) Count 11.58 10x3/uL (4.8-10.8)
[2025-04-06 05:24] LABS: ALT (SGPT) 43 U/L (Less than 45); AST (SGOT) 62 U/L (11-34); Albumin 3.1 g/dL (3.1-4.5); Alkaline Phosphatase 142 U/L (40-110); Anion Gap 15 mmol/L (10-20); BUN (Urea Nitrogen) 21 mg/dL (8.4-25.7); Bilirubin, Total 0.7 mg/dL (0.3-1.2); Calc. Creatinine Clearance 38 mL/min (70-130); Calcium 9.0 mg/dL (7.8-10.44); Carbon Dioxide 23 mmol/L (23-31); Chloride 108 mmol/L (98-107); Globulin 3.6 g/dL (2.4-3.5); Glucose 119 mg/dL (83-110); Potassium 4.0 mmol/L (3.5-5.1); Sodium 142 mmol/L (136-145)
[2025-04-06] MEDS ORDERED: BUPROPION HCL 150 MG PO SCH (09:00)
[2025-04-06] MEDS ORDERED: Aspirin 81 mg Enteric Coated Tablet PO SCH (09:00)
[2025-04-06] MEDS: CO Q-10 CAPSULE 100 MG PO SCH (09:48)
[2025-04-06] MEDS ORDERED: Communication Order-Pharmacy FS SCH (16:45)
[2025-04-07 05:03] LABS: #Basophils 0.07 10x3/uL (0.0-0.2); #Eosinophils 0.23 10x3/uL (0.0-0.7); #Monocytes 1.68 10x3/uL (0.11-0.59); #Neutrophils 7.64 10x3/uL (1.40-6.50); %Basophils 0.6 % (0.0-1.0); %Eosinophils 1.9 % (0.0-10.0); %Lymphocytes 19.4 % (21.0-51.0); %Monocytes 14.0 % (0.0-10.0); %Neutrophils 63.4 % (42.0-75.0); Hematocrit 40.6 % (42.0-52.0); Hemoglobin 12.7 g/dL (14.0-18.0); Mean Corpuscular Hemoglobin 27.8 pg (27.0-31.0); Mean Corpuscular Volume 88.8 fL (78.0-98.0); Platelet Count 443 10x3/uL (130-400); Red Blood Cell (RBC) Count 4.57 mill/uL (4.70-6.10); White Blood Cell (WBC) Count 12.03 10x3/uL (4.8-10.8)
[2025-04-07 05:37] LABS: ALT (SGPT) 35 U/L (Less than 45); AST (SGOT) 30 U/L (11-34); Albumin 3.1 g/dL (3.1-4.5); Alkaline Phosphatase 132 U/L (40-110); Anion Gap 15 mmol/L (10-20); BUN (Urea Nitrogen) 25 mg/dL (8.4-25.7); Bilirubin, Total 0.5 mg/dL (0.3-1.2); Calc. Creatinine Clearance 34 mL/min (70-130); Calcium 9.3 mg/dL (7.8-10.44); Carbon Dioxide 20 mmol/L (23-31); Chloride 107 mmol/L (98-107); Globulin 3.5 g/dL (2.4-3.5); Glucose 128 mg/dL (83-110); Potassium 3.9 mmol/L (3.5-5.1); Sodium 138 mmol/L (136-145)
[2025-04-07 06:05] LABS: Hematocrit 41.8 % (42.0-52.0); Hemoglobin 13.3 g/dL (14.0-18.0); Platelet Count 429 10x3/uL (130-400)
[2025-04-08 04:47] LABS: #Basophils 0.07 10x3/uL (0.0-0.2); #Eosinophils 0.24 10x3/uL (0.0-0.7); #Monocytes 1.87 10x3/uL (0.11-0.59); #Neutrophils 7.43 10x3/uL (1.40-6.50); %Basophils 0.6 % (0.0-1.0); %Eosinophils 1.9 % (0.0-10.0); %Lymphocytes 21.9 % (21.0-51.0); %Monocytes 15.1 % (0.0-10.0); %Neutrophils 59.9 % (42.0-75.0); Hematocrit 42.9 % (42.0-52.0); Hemoglobin 13.9 g/dL (14.0-18.0); Mean Corpuscular Hemoglobin 28.0 pg (27.0-31.0); Mean Corpuscular Volume 86.3 fL (78.0-98.0); Platelet Count 469 10x3/uL (130-400); Red Blood Cell (RBC) Count 4.97 mill/uL (4.70-6.10); White Blood Cell (WBC) Count 12.40 10x3/uL (4.8-10.8)
[2025-04-08 06:18] LABS: ALT (SGPT) 30 U/L (Less than 45); AST (SGOT) 25 U/L (11-34); Albumin 3.2 g/dL (3.1-4.5); Alkaline Phosphatase 141 U/L (40-110); Anion Gap 16 mmol/L (10-20); BUN (Urea Nitrogen) 27 mg/dL (8.4-25.7); Bilirubin, Total 0.4 mg/dL (0.3-1.2); Calc. Creatinine Clearance 32 mL/min (70-130); Calcium 9.0 mg/dL (7.8-10.44); Carbon Dioxide 22 mmol/L (23-31); Chloride 106 mmol/L (98-107); Globulin 3.9 g/dL (2.4-3.5); Glucose 132 mg/dL (83-110); Potassium 3.8 mmol/L (3.5-5.1)
[2025-04-08 06:27] LABS: Sodium 140 mmol/L (136-145)
[2025-04-09 06:50] LABS: #Basophils 0.07 10x3/uL (0.0-0.2); #Eosinophils 0.19 10x3/uL (0.0-0.7); #Monocytes 2.04 10x3/uL (0.11-0.59); #Neutrophils 11.21 10x3/uL (1.40-6.50); %Basophils 0.4 % (0.0-1.0); %Eosinophils 1.2 % (0.0-10.0); %Lymphocytes 15.6 % (21.0-51.0); %Monocytes 12.6 % (0.0-10.0); %Neutrophils 69.6 % (42.0-75.0); Hematocrit 45.1 % (42.0-52.0); Hemoglobin 14.7 g/dL (14.0-18.0); Mean Corpuscular Hemoglobin 28.2 pg (27.0-31.0); Mean Corpuscular Volume 86.4 fL (78.0-98.0); Platelet Count 434 10x3/uL (130-400); Red Blood Cell (RBC) Count 5.22 mill/uL (4.70-6.10); White Blood Cell (WBC) Count 16.13 10x3/uL (4.8-10.8)
[2025-04-09 06:56] LABS: ALT (SGPT) 35 U/L (Less than 45); AST (SGOT) 38 U/L (11-34); Albumin 3.3 g/dL (3.1-4.5); Alkaline Phosphatase 131 U/L (40-110); Anion Gap 15 mmol/L (10-20); BUN (Urea Nitrogen) 25 mg/dL (8.4-25.7); Bilirubin, Total 0.4 mg/dL (0.3-1.2); Calc. Creatinine Clearance 37 mL/min (70-130); Calcium 9.1 mg/dL (7.8-10.44); Carbon Dioxide 17 mmol/L (23-31); Chloride 110 mmol/L (98-107); Globulin 3.8 g/dL (2.4-3.5); Glucose 137 mg/dL (83-110); Potassium 3.9 mmol/L (3.5-5.1); Sodium 138 mmol/L (136-145)
[2025-04-09] MEDS ORDERED: Adenosine 6 mg (2 mL) VIAL ONE (09:55)
[2025-04-09] MEDS ORDERED: Heparin 10,000 UNITS/ 10 ML VIAL ONE ×2 (09:55→13:08)
[2025-04-09] MEDS ORDERED: EPINEPHrine 1 MG/10 ML Abboject SYRINGE ONE (09:55)
[2025-04-09] MEDS ORDERED: Nitroglycerin 50 MG/250 ML BOT 0 ML ONE (09:55)
[2025-04-09] MEDS ORDERED: PHENYLEPHRINE-NS 100 MCG/ML 10 ML SYRINGE ONE (09:56)
[2025-04-09] MEDS ORDERED: Lidocaine 1% (PF) 30 ML VIAL ONE (09:56)
[2025-04-09] MEDS ORDERED: hydrALAZINE 20 MG/ML VIAL ONE (13:55)
[2025-04-09] MEDS ORDERED: Iopamidol 370 76% 100 ML VIAL ONE (14:38)
[2025-04-10 04:31] LABS: #Basophils 0.07 10x3/uL (0.0-0.2); #Eosinophils 0.17 10x3/uL (0.0-0.7); #Monocytes 1.70 10x3/uL (0.11-0.59); #Neutrophils 7.77 10x3/uL (1.40-6.50); %Basophils 0.6 % (0.0-1.0); %Eosinophils 1.4 % (0.0-10.0); %Lymphocytes 19.5 % (21.0-51.0); %Monocytes 14.0 % (0.0-10.0); %Neutrophils 64.1 % (42.0-75.0); Hematocrit 42.9 % (42.0-52.0); Hemoglobin 13.6 g/dL (14.0-18.0); Mean Corpuscular Hemoglobin 27.9 pg (27.0-31.0); Mean Corpuscular Volume 88.1 fL (78.0-98.0); Platelet Count 447 10x3/uL (130-400); Red Blood Cell (RBC) Count 4.87 mill/uL (4.70-6.10); White Blood Cell (WBC) Count 12.12 10x3/uL (4.8-10.8)
[2025-04-10 05:02] LABS: ALT (SGPT) 32 U/L (Less than 45); AST (SGOT) 36 U/L (11-34); Albumin 3.4 g/dL (3.1-4.5); Alkaline Phosphatase 127 U/L (40-110); Anion Gap 15 mmol/L (10-20); BUN (Urea Nitrogen) 19 mg/dL (8.4-25.7); Bilirubin, Total 0.5 mg/dL (0.3-1.2); Calc. Creatinine Clearance 38 mL/min (70-130); Calcium 9.0 mg/dL (7.8-10.44); Carbon Dioxide 18 mmol/L (23-31); Chloride 111 mmol/L (98-107); Globulin 3.4 g/dL (2.4-3.5); Glucose 108 mg/dL (83-110); Potassium 3.7 mmol/L (3.5-5.1); Sodium 140 mmol/L (136-145)
[2025-04-10] MEDS: Aspirin Chewable 81 MG TAB PO SCH (09:08)
[2025-04-10] MEDS: Sacubitril 49 MG/Valsartan 51 MG TABLET PO SCH (21:18)
[2025-04-11] MEDS: hydrALAZINE 20 MG/ML VIAL SLOW IVP PRN (01:02)
[2025-04-11 04:42] LABS: Hematocrit 41.5 % (42.0-52.0); Hemoglobin 13.1 g/dL (14.0-18.0); Platelet Count 412 10x3/uL (130-400)
[2025-04-11 04:46] LABS: Hematocrit 41.5 % (42.0-52.0); Hemoglobin 13.2 g/dL (14.0-18.0); Mean Corpuscular Hemoglobin 27.7 pg (27.0-31.0); Mean Corpuscular Volume 87.0 fL (78.0-98.0); Platelet Count 439 10x3/uL (130-400); Red Blood Cell (RBC) Count 4.77 mill/uL (4.70-6.10); White Blood Cell (WBC) Count 13.26 10x3/uL (4.8-10.8)
[2025-04-11 05:03] LABS: ALT (SGPT) 25 U/L (Less than 45); AST (SGOT) 24 U/L (11-34); Albumin 3.4 g/dL (3.1-4.5); Alkaline Phosphatase 124 U/L (40-110); Anion Gap 16 mmol/L (10-20); BUN (Urea Nitrogen) 17 mg/dL (8.4-25.7); Bilirubin, Total 0.4 mg/dL (0.3-1.2); Calc. Creatinine Clearance 37 mL/min (70-130); Calcium 9.0 mg/dL (7.8-10.44); Carbon Dioxide 21 mmol/L (23-31); Chloride 109 mmol/L (98-107); Globulin 3.3 g/dL (2.4-3.5); Glucose 147 mg/dL (83-110); Potassium 3.6 mmol/L (3.5-5.1); Sodium 142 mmol/L (136-145)
[2025-04-11 05:15] LABS: Burr Cells SLIGHT = 2-5 cells HPF (0-1); Platelet Adequacy Comment Platelets Normal; Poikilocytosis MODERATE=16-30 cells HPF (0-5); Schistocytes SLIGHT = 2-5 cells HPF (0-1); Smudge Cells 5.9 %
[2025-04-11 11:38] VITALS: BP 143/78; TEMP 98
== END 2025-04-11 14:08 | disposition home or self-care (01) | DRG 280 ==
LOC: ERS 00:34 → ERHOLD 05:55 → OBSVTOIN 09:02 → OBS 12:30
PROVIDERS: ADMIT Family Medicine; ATTEND Family Medicine
PROC: 4A023N7 Measurement of Cardiac Sampling and Pressure, Left Heart, Percutaneous Approach (ICD-10-PCS; principal; 2025-04-05)
PROC: B2111ZZ Fluoroscopy of Multiple Coronary Arteries using Low Osmolar Contrast (ICD-10-PCS; 2025-04-05)
PROC: B2151ZZ Fluoroscopy of Left Heart using Low Osmolar Contrast (ICD-10-PCS; 2025-04-05)
DX: I21.4 Non-ST elevation (NSTEMI) myocardial infarction (principal); I50.23 Acute on chronic systolic (congestive) heart failure; I13.0 Hypertensive heart and chronic kidney disease with heart failure and stage 1 through stage 4 chronic kidney disease, or unspecified chronic kidney disease; R29.6 Repeated falls; I48.91 Unspecified atrial fibrillation; Z79.01 Long term (current) use of anticoagulants; Z79.899 Other long term (current) drug therapy; I25.10 Atherosclerotic heart disease of native coronary artery without angina pectoris; E78.5 Hyperlipidemia, unspecified; Z79.82 Long term (current) use of aspirin; I25.5 Ischemic cardiomyopathy; F41.9 Anxiety disorder, unspecified; F32.A Depression, unspecified; I95.1 Orthostatic hypotension; N18.9 Chronic kidney disease, unspecified
CPT/HCPCS: 36415; 36416; 71045; 78452; 80053; 83735; 83880; 84145; 84443; 84484; 85025; 85347; 85730; 87040; 87428; 92928; 93005; 93010; 93017; 93306; 93455; 94760; 96374; 96375; 97139; 99152; 99153; A9502; C1769; C1874; C1887; C9600; J0153; J0165; J0360; J0461; J1644; J1650; J1940; J2250; J2785; J3010; J7030; Q9967